=== PATIENT | male | born 1940 | race Caucasian/White ===

== ENCOUNTER 2020-05-26 09:29 | Inpatient (IN) | payer MEDICARE, OTHER, SELFPAY ==
[2020-05-26] VITALS (19 sets, daily range): BP systolic 126–156; BP diastolic 53–90; PULSE 67–87; RESP 15–20; TEMP 36.5–37.1; O2SAT 71–100; BMI 26.6
--- NOTE | ~2020-05-26 | XR_ITS ---
EXAMINATION: XR chest 1V portable INDICATION: Weakness TECHNIQUE: Portable AP chest at 0950 hours COMPARISON: 09/26/2013 FINDINGS: The lungs are free of acute opacities. There is no pleural effusion or pneumothorax. The ca rdiomediastinal silhouette is normal. There is moderate osteoarthritis of the shoulders. IMPRESSION: 1. No acute cardiopulmonary abnormality. Reviewed, dictated and finalized at location A.
--- NOTE | ~2020-05-26 | CT_ITS ---
EXAMINATION: CT knee RT wo con DATE: 05/29/2020 13:34 INDICATION: Right knee pain TECHNIQUE: High resolution computed tomography (CT) of the right knee was performed without intraveno us contrast. Additional sagittal and coronal reconstructions were performed. Automated exposure contr ol and iterative reconstruction technique were employed. The dose-length product was 634.24 mGy-cm. COMPARISON: Radiographs date FINDINGS: Bone alignment is normal. No fracture. Chondrocalcinosis at the bilateral menisci. Tricompartmental o steoarthritis, mild to moderate severity in the medial compartment and mild in the lateral and patell ofemoral compartments. Small knee joint effusion. There is also a moderate-sized Guerrero's cyst. Fatty atrophy of the distal semimembranosus and proximal tibialis anterior muscles. Prominent dystrophic ca lcification along the posterior cruciate ligament. Intraosseous cystic changes along the intercondyla r eminence. Moderate-sized enthesophyte at the anterior tibial tubercle. Scattered atherosclerotic ca lcifications in the distal thigh and proximal calf. IMPRESSION: 1. Chondrocalcinosis and mild to moderate medial compartment predominant tricompartmental osteoarthri tis at the right knee 2. Small right knee joint effusion. 3. Moderate-sized Guerrero's cyst. 4. Fatty atrophy which could be related to prior trauma or denervation change at the distal semimembr anosus and proximal tibialis anterior muscles. Reviewed, dictated and finalized at location A. IMPRESSION: 1. Chondrocalcinosis and mild to moderate medial compartment predominant tricom partmental osteoarthritis at the right knee 2. Small right knee joint effusion. 3. Moderate-sized Guerrero's cyst. 4. Fatty atrophy which could be related to prior trauma or denervation change a t the distal semimembranosus and proximal tibialis anterior muscles.
--- NOTE | ~2020-05-26 | XR_ITS ---
EXAMINATION: XR knee RT 2V DATE: 05/28/2020 13:29 INDICATION: Right knee pain. TECHNIQUE: 2 views of right knee were obtained. COMPARISON: None. FINDINGS: Bone alignment is normal. No fracture. There is mild tricompartmental osteoarthritis of the knee. There is a small knee joint effusion. IMPRESSION: 1. Mild right knee osteoarthritis. 2. Small right knee joint effusion. Reviewed, dictated and finalized at location A.
--- NOTE | ~2020-05-26 | US_ITS ---
EXAMINATION: US knee asp inj w image RT DATE: 05/30/2020 16:03 INDICATION: Right knee pain TECHNIQUE: The procedure and its risks and benefits were discussed with the patient. Potential risks discussed included bleeding and infection. The skin was prepped and draped in sterile fashion. 1% lid ocaine was used for local anesthesia. Under ultrasound guidance, a 22-gauge needle was advanced into the effusion at the lateral side of the suprapatellar pouch of the right knee. 15 mm of fluid was asp irated and sent to the lab for studies as ordered by the referring physician. The needle was removed, and a dressing was applied. There were no immediate complications. FINDINGS: Ultrasound images demonstrate a small right knee joint effusion. IMPRESSION: 1. Successful ultrasound-guided right knee arthrocentesis yielding 15 mL of cloudy yellowish fluid. Reviewed, dictated and finalized at location A. IMPRESSION: 1. Successful ultrasound-guided right knee arthrocentesis yielding 15 mL of cl oudy yellowish fluid.
--- NOTE | ~2020-05-26 | CT_ITS ---
EXAMINATION: CT pelvis wo con DATE: 05/29/2020 13:35 INDICATION: Right hip pain TECHNIQUE: High resolution computed tomography (CT) of the pelvis was performed without intravenous c ontrast. Additional sagittal and coronal reconstructions were performed. Automated exposure control a nd iterative reconstruction technique were employed. The dose-length product was 455.94 mGy-cm. COMPARISON: Right hip radiographs dated 05/28/2020 FINDINGS: Bone alignment is normal. No fracture or suspected avascular necrosis. Moderate osteoarthritis with p osterior predominant joint space narrowing and prominent acetabular marginal osteophytes at both the left and right hips. Moderate right and mild left sacroiliac osteoarthritis with developing ankylosis across the right sacroiliac joint. There are few scattered small bone islands at the bilateral femor al heads. Well-defined 1.5 cm lucent lesion at the intertrochanteric left femur which demonstrates ce ntral macroscopic fat attenuation most likely benign. No hip joint effusions. No asymmetric muscular atrophy at the pelvis or proximal thighs. Mild prostatomegaly. Mild sigmoid diverticulosis without ad jacent inflammatory change to suggest diverticulitis. No pathologically enlarged pelvic or inguinal l ymphadenopathy. IMPRESSION: 1. Moderate bilateral hip osteoarthritis. No acute osseous abnormality. Reviewed, dictated and finalized at location A.
--- NOTE | ~2020-05-26 | CT_ITS ---
EXAMINATION: CT abdomen pelvis w con EXAM DATE: 05/26/2020 10:43 INDICATION: Anemia and diarrhea. TECHNIQUE: Spiral CT of the abdomen and pelvis was performed following intravenous injection of 100 m L Omnipaque 350. Axial, coronal and sagittal images were reviewed. The dose-length product (DLP) fo r this examination was 941.14 mGy-cm. The exposure was tailored according to patient size (auto mA e xposure control), and iterative reconstruction (ASIR) was used as additional dose reduction technique . There is no prior study for comparison. FINDINGS: The liver, spleen, adrenal glands and pancreas are unremarkable. Gallbladder is unremarkab le. No biliary obstruction. Portal and splenic veins are patent. Kidneys enhance symmetrically. T here is no hydronephrosis. The prostate is unremarkable. The bladder is undistended at time of lukasz ging. There is no retroperitoneal or pelvic lymphadenopathy. There is mild to moderate scattered a rteriosclerotic disease. The appendix is normal. The stomach and small bowel are unremarkable. There is mild scattered coloni c diverticulosis. There is no adjacent inflammatory change to suggest diverticulitis. There is expec zane amount of colonic stool. No free intraperitoneal gas. The heart is normal in size. There are no pericardial or pleural effusions. The lung bases are unremarkable. There are no osteoblastic or osteolytic lesions identified. IMPRESSION: 1. No acute intra-abdominal findings. 2. Mild scattered colonic diverticulosis. Reviewed, dictated and finalized at location B.
--- NOTE | ~2020-05-26 | XR_ITS ---
EXAMINATION: XR hip RT min 2V DATE: 05/28/2020 13:29 INDICATION: Right hip pain. TECHNIQUE: 2 views of right hip were obtained. COMPARISON: CT abdomen and pelvis 05/26/2020 FINDINGS: Bone alignment is normal. No fracture. There is moderate right hip osteoarthritis. IMPRESSION: 1. Moderate right hip osteoarthritis. Reviewed, dictated and finalized at location A.
--- NOTE | ~2020-05-26 | CT_ITS ---
EXAMINATION: CT lumbar spine w con DATE: 05/28/2020 20:44 INDICATION: Lumbar back pain TECHNIQUE: Computed tomography (CT) of the lumbar spine was performed without intravenous contrast. A utomated exposure control and iterative reconstruction technique were employed. The dose-length produ ct was 1411.62 mGy-cm. COMPARISON: None FINDINGS: Alignment is normal. Transitional T12 segment with hypoplastic riblet on the right and left-sided tra nsverse process. Vertebral body heights are normal. No fracture. There are bridging osteophytes at mu ltiple levels in the lower thoracic spine which along with enthesophytes along the spinous processes, bilateral posterior iliac spines and bridging osteophytes anterior to the right sacroiliac joint are all consistent with diffuse idiopathic skeletal hyperostosis (DISH). Mild disc height loss with cent ral disc ossification at T8-T9 through T11-T12. Additional mild disc height loss at L2-L3, L4-L5 and L5-S1. Paravertebral soft tissues are unremarkable. Diverticulosis along the visualized sigmoid colon . The following disc levels are specifically discussed: T12-L1: The disc does not extend beyond the endplate margin. There is mild bilateral facet joint oste oarthritis. There is no neural foraminal stenosis. There is no central canal stenosis. L1-L2: Disc is mildly bulging. There is mild bilateral facet joint osteoarthritis. There is minimal b ilateral neural foraminal stenosis. There is mild central canal stenosis. L2-L3: Disc is mildly bulging and there is small amount of ossification along the posterior longitudi nal ligament. There is mild bilateral facet joint osteoarthritis. There is mild bilateral neural for aminal stenosis. There is moderate central canal stenosis. L3-L4: Disc is bulging. There is mild bilateral facet joint osteoarthritis. There is mild bilateral n eural foraminal stenosis. There is mild central canal stenosis. L4-L5: Posterior disc osteophyte complex. There is mild to moderate bilateral facet joint osteoarthri tis. There is moderate bilateral neural foraminal stenosis. There is mild central canal stenosis. L5-S1: Posterior disc osteophyte complex. There is mild bilateral facet joint osteoarthritis. There i s moderate bilateral neural foraminal stenosis. There is minimal central canal stenosis. IMPRESSION: 1. Mild to moderate lumbar spondylosis. Reviewed, dictated and finalized at location A.
--- NOTE | ~2020-05-26 | CT_ITS ---
EXAMINATION: CT brain wo con DATE: 05/26/2020 10:28 INDICATION: Weakness. TECHNIQUE: Computed tomography (CT) of the head was performed without intravenous contrast. The mA wa s adjusted according to patient size. Iterative reconstruction technique was employed. The dose-lengt h product was 681.00 mGy-cm. COMPARISON: Head CT 09/26/2013, brain MRI 09/27/2013 FINDINGS: There is chronic mild atrophy of the cerebellum. There are old lacunar infarcts in the bila teral thalami and left side of the marlena. There are scattered areas of low attenuation in the cerebral white matter. There is no intracranial hemorrhage, acute infarction, or abnormal intracranial mass l esion. There are likely changes of ocular lens replacement surgeries. IMPRESSION: 1. Old lacunar infarcts in the thalami and marlena. 2. Worsened moderate nonspecific cerebral white matter disease, which likely represents chronic small vessel ischemic disease. 3. Mild atrophy of the cerebellum, which may be secondary to chronic Dilantin therapy. Reviewed, dictated and finalized at location A. IMPRESSION: 1. Old lacunar infarcts in the thalami and marlena. 2. Worsened moderate nonspecific cerebral white matter disease, which likely re presents chronic small vessel ischemic disease. 3. Mild atrophy of the cerebellum, which may be secondary to chronic Dilantin t herapy.
--- NOTE | 2020-05-26 09:28 | ECG_ITS ---
Measurements Intervals Chicken Rate: 76 P: 91 CO: 172 QRS: 25 QRSD: 93 T: 30 QT: 389 QTc: 438 Interpretive Statements SINUS RHYTHM BORDERLINE ST ABNORMALITY- ANTEROLATERAL LEADS BASELINE WANDER- I, II, III BORDERLINE ECG Electronically Signed On 05-26-2020 10:00:04 CDT by Nick Maya D.O.
[2020-05-26 09:41] LABS: Basophils Percent Auto 0.2 % (0.2-1.2); Eosinophils Absolute Auto 0.2 K/mm3 (0-0.3); Eosinophils Percent Auto 1.2 % (0-4.4); Immature Granulocyte Absolute 0.04 K/mm3 (0.00-0.031); Immature Granulocyte Percent A 0.3 % (0-0.5); Lymphocytes Absolute Auto 1.37 K/mm3 (0.9-3.2); Lymphocytes Percent Auto 10.6 % (18.3-44.2); Mean Corpuscular HGB Conc 28.3 g/dl (32-36); Mean Corpuscular Hemoglobin 22.7 pg (26-34); Mean Corpuscular Volume 80.3 fl (80-100); Mean Platelet Volume 10.3 fl (7.4-10.4); Monocytes Absolute Auto 1.4 K/mm3 (0.1-0.6); Monocytes Percent Auto 10.9 % (2.6-8.5); Neutrophils Absolute Auto 9.9 K/mm3 (1.3-6.7); Neutrophils Percent Auto 76.8 % (45.5-73.1); Platelet Count Result 342 k/mm3 (150-375); Red Blood Count 2.29 M/mm3 (4.6-6.20); White Blood Count 12.9 K/mm3 (4.5-10.0)
--- NOTE | 2020-05-26 09:43 | ED.WEAKNESS ---
HPI - Weakness General Chief complaint: Weakness Stated complaint: weakness x 1 week Time Seen by Provider: 05/26/20 09:31 Source: patient, family () and EMS Mode of arrival: EMS Limitations: dementia History of Present Illness HPI Narrative: Patient arrives via EMS along with his for increasing weakness. He has baseline dementia and has been needing assistance for years. He has been wearing depends for 3 years. In the last 2 days his has not been able to verbally encourage him to get out of bed. She had to physically assist him to the table to eat, and that was unable to get him to the kitchen and had to just get him to the living room to sit on the couch. He had stools and was unaware of it. She said the stools are diarrhea. He has no fever chills sweats or cough. He complains of right knee pain. She said that is chronic. His appetite has decreased.. He had a stroke 9 years ago, and has had the dementia since. The gives a history. She denies that he has had surgeries. He does not smoke cigarettes, drink alcohol, or do marijuana. MD Complaint: generalized weakness Onset (ago): day(s) Duration: constant Location: generalized Migration: none Severity: severe Relieving factors: none Exacerbating factors: none Associated symptoms: denies other symptoms Related Data Home Medications Medication Instructions Recorded Confirmed atorvastatin 10 mg PO DAILY 05/26/20 citalopram 10 mg PO DAILY 05/26/20 clopidogrel 75 mg PO DAILY 05/26/20 donepezil 5 mg PO HS 05/26/20 glimepiride 1 mg PO QAM 05/26/20 lisinopril 2.5 mg PO DAILY 05/26/20 memantine 5 mg PO QAM 05/26/20 metformin 1,000 mg PO DAILY 05/26/20 tamsulosin 0.4 mg PO DAILY 05/26/20 Allergies Allergy/AdvReac Type Severity Reaction Status Date / Time No Known Allergies Allergy Unverified 05/26/20 09:40 Review of Systems Review of Systems: Narrative: Review of systems as per the . All systems reviewed & are unremarkable except as noted in HPI and below PMFSH Past Medical History Medical History (Updated 05/26/20 @ 14:58 by Ирина Valerio NP) BPH (benign prostatic hyperplasia) Dementia Diarrhea DM2 (diabetes mellitus, type 2) History of CVA (cerebrovascular accident) HTN (hypertension), malignant Hyperlipidemia Weakness Surgical History Surgical History (Updated 05/26/20 @ 09:47 by Theresa Doss MD) No pertinent past surgical history Family History Family History (Updated 05/26/20 @ 14:47 by Ирина Valerio NP) Mother Cerebrovascular accident Father Acute myocardial infarction Social History Social History (Updated 05/26/20 @ 14:51 by Ирина Valerio NP) Social History: the patient lives with his and has 2 children. The states that he is a full code at this time. Patient used to smoke cigars open to the time that he had a stroke but then has not since then. Does not use any marijuana or illicit drugs. 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 Smoking status: Former smoker Alcohol intake: never Substance use: never Gender identity (if verbalized by the patient): Male Exam Narrative: Exam Narrative: GENERAL: Well-appearing, well-nourished, and in no acute distress. HEAD: Normocephalic, atraumatic. EYES: PERRLA and EOMI. ENT: Nares clear, no rhinorrhea or epistaxis. Mucous membranes moist. NECK: Supple. CHEST: Clear to auscultation. No respiratory distress. HEART: Regular rate and rhythm. No murmur heard. Normal peripheral pulses. ABDOMEN: Soft, nontender, nondistended, normal active bowel sounds. EXTREMITIES: Normal range of motion. No edema. SKIN: Warm, dry, no rash. NEURO: No focal deficits. Alert and oriented x1. PSYCH: Normal mood and affect. Course Reevaluation(s) Reevaluation #1: The gives permission for blood transfusion because her has dementia. His stool was dark brown and tested positive on the Hemoccult. Date: 05/26/20 Time: 10:40 Re
[2020-05-26 09:49] LABS: Hematocrit 18.4 % (42.0-52.0); Hemoglobin 5.2 g/dL (14.0-18.0)
[2020-05-26 09:53] LABS: Platelet Estimate Adequate (Adequate)
[2020-05-26 09:54] LABS: Alanine Aminotransferase 24 U/L (4-50); Albumin Level 3.8 g/dL (3.5-5.1); Alkaline Phosphatase 118 U/L (38-126); Anion Gap 8 mmol/L (8-16); Anisocytosis 1+ (NORMAL); Aspartate Amino Transferase 22 U/L (17-59); Bilirubin,Total 0.3 mg/dL (0.2-1.3); Blood Urea Nitrogen 30 mg/dL (9-20); Calcium 8.6 mg/dL (8.4-10.2); Carbon Dioxide 23 mmol/L (22-30); Chloride 110 mmol/L (98-107); Estimated CRCL calculation 55 ml/min; Estimated Glomerular Filt Rate > 60; Glucose 117 mg/dL (75-110); Hypochromasia 1+ (NORMAL); Ovalocytes 1+ (NORMAL); Potassium 4.2 mmol/L (3.4-5.0); Sodium 141 mmol/L (137-145)
[2020-05-26 09:56] LABS: Add Urine Microscopic? YES; Appearance Urine Clear (Clear); Bilirubin Urine Negative (Negative); Blood Urine Negative (Negative); Color Urine Yellow (Yellow); Glucose Urine UA Negative (Negative); Ketones Urine Trace mg/dL (Negative); Leukocyte Esterase Ur Negative LEU/UL (Negative); Mucus Urine Rare /lpf; Nitrate Urine Negative (Negative); Protein Urine Negative (Negative); RBC Urine 0-2 /hpf (0-2); Specific Grav Ur 1.018 (1.001-1.035); Squamous Epithelial Cell Urine Rare /hpf (Few); Urobilinogen Urine Negative mg/dL (<2.0); WBC Urine 0-3 /hpf
[2020-05-26 10:00] LABS: INR 1.2; Prothrombin Time 14.8 Seconds (11.1-14.7)
--- NOTE | 2020-05-26 10:24 | PC.NURSE ---
could not draw blood at this time, pt is in ct and xray.
[2020-05-26 10:29] LABS: NT Pro B Type Natriuretic Pept 446 PG/ML (5-100); Troponin I < 0.012 ng/mL (0.000-0.034)
--- NOTE | 2020-05-26 11:10 | PC.NURSE ---
REPORT GIVEN TO MARIANO WELCH AT THIS TIME, SHE HAS ASSUMED PT CARE.
[2020-05-26] MEDS: SODIUM CHLORIDE 0.9% IV 250 ML 30 ML IV CONT (12:05)
[2020-05-26] MEDS: TUBING, BLOOD SET 1 EACH XX (12:20)
--- NOTE | 2020-05-26 14:34 | PM.IMHP ---
H&P: HPI History of Present Illness Date/Time: 05/26/20 14:34 Chief complaint: weakness/anemia/GI bleed/dementia Narrative: Marek Carrasco is a 80 year old male Who has dementia and history of a CVA. The patient has been having some generalized weakness for at least 1 week. The patient stated that the week this was so bad this morning that she could not get him out of bed. The patient has been taking care of by his . Patient had diarrhea stools. The patient had no fever chills. His not had any recent falls. The patient's stated that he has been having anemia but has not been this severe. His H&H was noted to be 5.2 and 18.4. Patient is very pale but he is alert and conversing. He does have some mild expressive aphasia but some things are understandable. His white counts 12.9. She I has been consulted. Patient's abdominal pelvis CT was read as no acute intra-abdominal findings. Mild scattered colonic diverticulosis. Head CT was noted as old lacunar infarcts in the thalami and marlena. Worsened moderate nonspecific cerebral white matter disease, which likely represents chronic small vessel ischemic disease. Mild atrophy of the cerebellum which may be secondary to chronic Dilantin therapy. I asked the if the patient had a seizure disorder and she stated that he had not had any seizures but at 1 time he was on seizure medicine because they thought he had seizures but when they ran some tests a found that he was not having seizures per se. He had a stroke approximately 9 years ago which left some right-sided residual. And some expressive aphasia. He was hospitalized here about 9 years ago because they thought he had another stroke but he had not. He had been on Plavix. But no aspirin. No other forms of anticoagulation. His blood pressure has been stable. 146/79. the tells me that he is at end-stage dementia and that he has some behavior problems at times. He recently was started on Celexa. I have spent approximately 45 minutes with the patient his . The tells me that the patient is a full code. Date of service 05/26/2020 Review of Systems Review of Systems: All systems reviewed & are unremarkable except as noted in HPI and below Constitutional: Constitutional: Reports as per HPI and Reports no additional constitutional complaints Eyes: Eyes: Reports as per HPI and Reports no additional eye complaints ENT: Reports system reviewed and no additional complaints, except as documented and Reports Normal hearing present Cardiovascular: Cardiovascular: Reports no additional cardiovascular complaints Respiratory: Respiratory: Reports no additional respiratory complaints and Reports no additional respiratory complaints Gastrointestinal: Gastrointestinal: Reports as per HPI and Reports no additional gastrointestinal complaints Musculoskeletal: Musculoskeletal: Reports no additional musculoskeletal complaints Integumentary/Breasts: Skin/Breast: Reports system reviewed and no additional complaints, except as docu and Reports as per HPI Neurologic: Reports system reviewed and no additional complaints, except as documented, Reports as per HPI and Reports Normal hearing present Psychiatric: Psychiatric: Reports no additional psychiatric complaints and Reports as per HPI Endocrine: Endocrine: Reports no additional endocrine complaints Hematologic/Lymphatic: Hematologic/Lymphatic: Reports no additional hematologic/lymphatic complaints Allergic/Immunologic: Allergic/Immunologic: Reports no additional allergic/immunologic complaints [facility] Past Medical History Medical History (Updated 05/26/20 @ 14:58 by Ирина Valerio NP) BPH (benign prostatic hyperplasia) Dementia Diarrhea DM2 (diabetes mellitus, type 2) History of CVA (cerebrovascular accident) HTN (hypertension), malignant Hyperlipidemia Weakness Surgical History Surgical History (Updated 05/26/20 @ 09:47 by Theresa Doss MD) No pertinent past kan
[2020-05-26 15:01] LABS: Troponin I 0.018 ng/mL (0.000-0.034)
--- NOTE | 2020-05-26 16:09 | ADMGEN ---
This patient, Marek Carrasco, was admitted to IMU Room 206-02 1600. Patient/ oriented to hospital policies and general routines including ID bracelet, bed and alarms, visiting hours, pain management, procedures, bathroom and other care routines, personal items, smoking policy, room service/diet, and visiting hours. Valuables list has been completed. Information on how to activate the Rapid Response Team has been discussed. Patient/ are encouraged to report perceived risks to care and to ask questions if they do not understand what they are told or what they should do.
--- NOTE | 2020-05-26 16:48 | WPDGICN ---
Assessment and Plan Assessment and plan (1) GI bleed: Qualifiers: GI bleed type/associated pathology: unspecified gastrointestinal hemorrhage type Qualified Code(s): K92.2 - Gastrointestinal hemorrhage, unspecified Code(s): K92.2 - Gastrointestinal hemorrhage, unspecified Status: Acute Assessment and Plan: dark stools, I wonder if could have upper gib but also need to have a colonoscopy to assess if diverticular bleed, malignancy, avm, etc will proceed with both scopes tomorrow hold plavix he will get his second unit prbc (2) Symptomatic anemia: Code(s): D64.9 - Anemia, unspecified Status: Acute Assessment and Plan: transfuse to keep hb above 7 ppi (3) Weakness: Code(s): R53.1 - Weakness Status: Acute (4) Diarrhea: Qualifiers: Diarrhea type: unspecified type Qualified Code(s): R19.7 - Diarrhea, unspecified Code(s): R19.7 - Diarrhea, unspecified Status: Acute Assessment and Plan: probably gib, supportive care GI Consult Note Consult date/time: 05/26/20 16:48 Reason for consult: symptomatic anemia HPI: Marek Carrasco is a 80 year old male with history dementia and history of a CVA about 9 years ago, now using plavix. History is obtained from who is at bedside. She noted that last week patient has progressively getting weaker and today she could not get him out of bed. She is his main caregiver. Also she noted dark loose stools for almost a week. On arrival hiis H&H was 5.2 and 18.4. 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 CT scan no acute intra-abdominal findings. Mild scattered colonic diverticulosis. Head CT was noted as old lacunar infarcts in the thalami and marlena. She says that his last colonoscopy was about 7 years ago. Review of Systems Constitutional: Constitutional: Denies chills, Reports fatigue, Denies headache(s), Reports lethargy and Reports weakness ENT: Reports Normal hearing present, Denies headache(s) and Denies neck pain Cardiovascular: Cardiovascular: Denies chest pain and Denies dyspnea Respiratory: Respiratory: Reports dyspnea on exertion Gastrointestinal: Gastrointestinal: Reports diarrhea Genitourinary: Genitourinary: Denies dysuria Musculoskeletal: Musculoskeletal: Denies neck pain Integumentary/Breasts: Skin/Breast: Denies dry skin Neurologic: Reports Normal hearing present, Denies headache(s) and Denies weakness Psychiatric: Psychiatric: Reports confusion Endocrine: Endocrine: Denies change in body appearance Hematologic/Lymphatic: Hematologic/Lymphatic: Denies easy bleeding Allergic/Immunologic: Allergic/Immunologic: Denies urticaria PMFSH Past Medical History Medical History (Updated 05/26/20 @ 16:53 by Bahman Tolentino MD) BPH (benign prostatic hyperplasia) Dementia Diarrhea DM2 (diabetes mellitus, type 2) History of CVA (cerebrovascular accident) HTN (hypertension), malignant Hyperlipidemia Symptomatic anemia Weakness Surgical History Surgical History (Updated 05/26/20 @ 09:47 by Theresa Doss MD) No pertinent past surgical history Social History Social History (Updated 05/26/20 @ 14:51 by Ирина Valerio NP) Social History: the patient lives with his and has 2 children. The states that he is a full code at this time. Patient used to smoke cigars open to the time that he had a stroke but then has not since then. Does not use any marijuana or illicit drugs. 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 Smoking status: Former smoker Tobacco type: cigars Alcohol intake: never Substance use: never Gender identity (if verbalized by the patient): Male Spiritual care concerns: No Meds Home Medications and Allergies Home Medications Medication Instructions Recorded Confirmed Type atorvastatin 10 mg PO DAILY 05/26/20 History citalopram 10 mg PO DAILY 05/26/20 History clopidogrel 75 mg P
[2020-05-26 17:05] LABS: Glucose Point of Care 175 (65-105)
[2020-05-26 20:13] LABS: Glucose Point of Care 138 (65-105)
[2020-05-26] MEDS: SODIUM CHLORIDE 0.9% IV 1,000 ML 125 ML IV CONT (21:32)
[2020-05-26] MEDS: PANTOPRAZOLE SODIUM IV 40 MG VIAL IV PUSH (21:33)
[2020-05-26 23:59] LABS: Hemoglobin 7.2 g/dL (14.0-18.0)
[2020-05-27] VITALS (16 sets, daily range): BP systolic 124–158; BP diastolic 53–88; PULSE 59–77; RESP 16–21; TEMP 35.8–37.1; O2SAT 99–100
[2020-05-27] MEDS: SODIUM CHLORIDE 0.9% IV 1,000 ML 125 ML IV CONT ×2 (05:32→14:32)
[2020-05-27 08:55] LABS: Glucose Point of Care 118 (65-105)
[2020-05-27 09:10] LABS: Hematocrit 22.8 % (42.0-52.0); Hemoglobin 7.2 g/dL (14.0-18.0)
[2020-05-27 09:32] LABS: Hemoglobin A1C 6.1 % (<5.7)
[2020-05-27 09:49] LABS: Alanine Aminotransferase 22 U/L (4-50); Albumin Level 3.5 g/dL (3.5-5.1); Alkaline Phosphatase 100 U/L (38-126); Anion Gap 7 mmol/L (8-16); Aspartate Amino Transferase 24 U/L (17-59); Bilirubin,Total 0.7 mg/dL (0.2-1.3); Blood Urea Nitrogen 19 mg/dL (9-20); Calcium 7.9 mg/dL (8.4-10.2); Carbon Dioxide 23 mmol/L (22-30); Chloride 110 mmol/L (98-107); Estimated CRCL calculation 58 ml/min; Estimated Glomerular Filt Rate > 60; Glucose 119 mg/dL (75-110); Phosphorus 2.8 mg/dL (2.5-4.5); Potassium 4.1 mmol/L (3.4-5.0); Sodium 140 mmol/L (137-145)
--- NOTE | 2020-05-27 10:56 | WPDANESEPPF ---
Anes - Initial Pre Proc Eval Procedure: Operation Date: 05/27/20 12:00 Proposed Procedures p Flexible Sigmoidoscopy - Bahman Tolentino MD s Esophagogastroduodenoscopy - Bahman Tolentino MD Date/Time: 05/27/20 10:56 Surgeon: Judy Becker MD Pre Op Diagnosis: weakness/anemia/GI bleed/dementia Patient Data Age: 80 Gender: M Height: 5 ft 9 in Weight: 83.2 kg Last Vital Signs Temp 98 F 05/27/20 08:00 Pulse 65 05/27/20 08:00 Resp 18 05/27/20 08:00 BP 158/86 H 05/27/20 08:00 Pulse Ox 100 05/27/20 08:00 Allergies Allergy/AdvReac Type Severity Reaction Status Date / Time No Known Allergies Allergy Unverified 05/26/20 09:40 Home Medications Medication Instructions Recorded Confirmed Type atorvastatin 20 mg PO DAILY 05/26/20 05/26/20 History citalopram 10 mg PO DAILY 05/26/20 05/26/20 History clopidogrel 75 mg PO DAILY 05/26/20 05/26/20 History donepezil 10 mg PO HS 05/26/20 05/26/20 History glimepiride 4 mg PO QAM 05/26/20 05/26/20 History lisinopril 10 mg PO DAILY 05/26/20 05/26/20 History memantine 10 mg PO QAM 05/26/20 05/26/20 History metformin 500 mg PO BID 05/26/20 05/26/20 History tamsulosin 0.4 mg PO DAILY 05/26/20 05/26/20 History Laboratory Tests 05/26/20 05/26/20 05/26/20 09:36 10:29 14:31 Hgb Hct Sodium Potassium Chloride Carbon Dioxide Anion Gap BUN Creatinine Estim Creat Clear Calc Estimated GFR Glucose POC Capillary Glucose Hemoglobin A1c Calcium Phosphorus Magnesium Total Bilirubin AST ALT Alkaline Phosphatase Troponin I 0.018 ng/mL D ng/mL (0.000-0.034) Total Protein Albumin TSH (Reflex) 1.610 uIU/mL uIU/mL (0.465-4.68) Blood Type A Positive Antibody Screen Negative Crossmatch See Detail 05/26/20 05/26/20 05/26/20 17:02 19:55 23:53 Hgb 7.2 g/dL L g/dL (14.0-18.0) Hct 23.0 % L % (42.0-52.0) Sodium Potassium Chloride Carbon Dioxide Anion Gap BUN Creatinine Estim Creat Clear Calc Estimated GFR Glucose POC Capillary Glucose 175 mg/dl H mg/dl 138 mg/dl H mg/dl (65-105) (65-105) Hemoglobin A1c Calcium Phosphorus Magnesium Total Bilirubin AST ALT Alkaline Phosphatase Troponin I Total Protein Albumin TSH (Reflex) Blood Type Antibody Screen Crossmatch 05/27/20 05/27/20 05/27/20 08:51 08:56 08:56 Hgb 7.2 g/dL L g/dL (14.0-18.0) Hct 22.8 % L % (42.0-52.0) Sodium Potassium Chloride Carbon Dioxide Anion Gap BUN Creatinine Estim Creat Clear Calc Estimated GFR Glucose POC Capillary Glucose 118 mg/dl H mg/dl (65-105) Hemoglobin A1c 6.1 % H % (<5.7) Calcium Phosphorus Magnesium Total Bilirubin AST ALT Alkaline Phosphatase Troponin I Total Protein Albumin TSH (Reflex) Blood Type Antibody Screen Crossmatch 05/27/20 05/27/20 08:56 08:56 Hgb Hct Sodium 140 mmol/L mmol/L (137-145) Potassium 4.1 mmol/L mmol/L (3.4-5.0) Chloride 110 mmol/L H mmol/L (98-107) Carbon Dioxide 23 mm
[2020-05-27] MEDS: LACTATED RINGERS 1,000 ML 150 ML IV CONT (11:55)
[2020-05-27 13:55] LABS: Glucose Point of Care 121 (65-105)
[2020-05-27] MEDS: MEMANTINE 5 MG TABLET PO (14:28)
[2020-05-27] MEDS: TAMSULOSIN HCL 0.4 MG CAPSULE PO (14:28)
[2020-05-27] MEDS: ATORVASTATIN 10 MG TABLET PO (14:28)
[2020-05-27] MEDS: GLIMEPIRIDE 1 MG TABLET PO (14:29)
[2020-05-27] MEDS: PANTOPRAZOLE SODIUM IV 40 MG VIAL IV PUSH ×2 (14:29→20:24)
[2020-05-27] MEDS: CITALOPRAM HYDROBROMIDE 10 MG TABLET PO (14:29)
[2020-05-27 16:22] LABS: Hematocrit 22.7 % (42.0-52.0); Hemoglobin 7.1 g/dL (14.0-18.0)
[2020-05-27 17:49] LABS: Glucose Point of Care 115 (65-105)
--- NOTE | 2020-05-27 18:03 | PM.IMPN ---
Progress Note: A&P Assessment and Plan (1) GI bleed: Qualifiers: GI bleed type/associated pathology: unspecified gastrointestinal hemorrhage type Qualified Code(s): K92.2 - Gastrointestinal hemorrhage, unspecified Code(s): K92.2 - Gastrointestinal hemorrhage, unspecified Status: Acute Assessment and Plan: Hgb 5.2 on admission. [place] related to GI bleed and EGD showing a gastric mass. Appreciate GI input. Patient recieved 2 units of packed red blood cells. Protonix started and Plavix held. His blood pressure is within normal limits. The stated that he was having dark stools. Monitor HH. No plans for colonoscopy at this time. (2) Acute blood loss anemia: Code(s): D62 - Acute posthemorrhagic anemia Status: Acute Assessment and Plan: Hemoglobin 5.2 on admission. Most likely related to a GI bleed from the gastric mass. Patient has been transfused 2 units of packed red blood cells. Hemoglobin has climbed 7 range stable. Will continue to monitor and transfuse as needed. Patient will need iron at time of discharge. 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 Patient's was informed of this. Oncology has been consulted. (4) Right leg pain: Code(s): M79.604 - Pain in right leg Status: Acute Assessment and Plan: Exam is difficult but concern for possibly right hip etiology for his pain. cannot exclude right knee or lumbar pathology. Will check right knee and right hip x-ray. Therapy has been ordered. Some of weakness is related to the anemia (5) Dementia: Qualifiers: Dementia behavioral disturbance: with behavioral disturbance Dementia type: unspecified type Qualified Code(s): F03.91 - Unspecified dementia with behavioral disturbance Code(s): F03.90 - Unspecified dementia without behavioral disturbance Status: Acute Assessment and Plan: Dementia with behavioral disorder. Appears to get agitated mostly night. Continue Namenda and Aricept. He was recently started on Celexa due to some behavioral problems. (6) BPH (benign prostatic hyperplasia): Code(s): N40.0 - Benign prostatic hyperplasia without lower urinary tract symptoms Status: Acute Assessment and Plan: Stable. Continue with tamsulosin. (7) HTN (hypertension), malignant: Code(s): I10 - Essential (primary) hypertension Status: Chronic Assessment and Plan: Patient's blood pressure was reviewed on 05/27 Blood pressure remains well controlled. lisinopril on hold (8) History of CVA (cerebrovascular accident): Code(s): Z86.73 - Personal history of transient ischemic attack (TIA), and cerebral infarction without residual deficits Status: Acute Assessment and Plan: Plavix on hold. Continue atorvastatin. (9) DM2 (diabetes mellitus, type 2): Code(s): E11.9 - Type 2 diabetes mellitus without complications Status: Chronic Assessment and Plan: The patient's blood glucose was reviewed on 05/27 Glucose remains well controlled. Continue AccuCheks covering with sliding scale. Hypoglycemia protocol available as needed. Diet started. Change to diabetic diet if glucose because poorly controlled. Metformin remains on hold (10) Hyperlipidemia: Code(s): E78.5 - Hyperlipidemia, unspecified Status: Chronic Assessment and Plan: LFTs within normal limits. Continue atorvastatin. Subjective Date/time seen: 05/27/20 18:03 Interval history: 80yo male with advanced dementia and hx of CVA here for GI bleed.Patient is awake and alert but unable to provide history because of his dementia. is at bedside. She states the patient has been more weak recently. He also ap
--- NOTE | 2020-05-27 19:55 | PC.NURSE ---
This patient, Marek Carrasco, was transferred to [[facility] ] on 05/27/20 at 1955. Personal belongings sent with patient. Belongings list checked and signed with receiving [ RN]. Report given to [ Josselyn Flores ]. Appropriate documentation sent with patient.
[2020-05-27] MEDS: DONEPEZIL HCL 5 MG TABLET PO (20:24)
[2020-05-27 20:33] LABS: Glucose Point of Care 139 (65-105)
--- NOTE | 2020-05-27 20:38 | PC.NURSE ---
2000 RECEIVED PT PER BED FROM IMU
[2020-05-28] VITALS (8 sets, daily range): BP systolic 128–151; BP diastolic 58–69; PULSE 53–78; RESP 16–20; TEMP 36.8–37.1; O2SAT 93–100
[2020-05-28] MEDS: SODIUM CHLORIDE 0.9% IV 1,000 ML 125 ML IV CONT (02:15)
[2020-05-28 05:10] LABS: Hematocrit 22.3 % (42.0-52.0); Mean Corpuscular HGB Conc 30.9 g/dl (32-36); Mean Corpuscular Hemoglobin 25.2 pg (26-34); Mean Corpuscular Volume 81.4 fl (80-100); Mean Platelet Volume 10.8 fl (7.4-10.4); Platelet Count Result 310 k/mm3 (150-375); Red Blood Count 2.74 M/mm3 (4.6-6.20); Red Cell Distribution Width 16.9 % (11.5-14.5); White Blood Count 12.6 K/mm3 (4.5-10.0)
[2020-05-28 05:20] LABS: Hemoglobin 6.9 g/dL (14.0-18.0)
[2020-05-28] MEDS: TUBING, BLOOD PLUM PUMP TUBING 1 EACH XX (05:20)
[2020-05-28 05:29] LABS: Anion Gap 7 mmol/L (8-16); Blood Urea Nitrogen 15 mg/dL (9-20); Calcium 7.8 mg/dL (8.4-10.2); Carbon Dioxide 23 mmol/L (22-30); Chloride 108 mmol/L (98-107); Estimated CRCL calculation 65 ml/min; Estimated Glomerular Filt Rate > 60; Glucose 108 mg/dL (75-110); Potassium 3.7 mmol/L (3.4-5.0); Sodium 138 mmol/L (137-145)
[2020-05-28] MEDS: SODIUM CHLORIDE 0.9% IV 250 ML 30 ML IV CONT (06:00)
--- NOTE | 2020-05-28 07:39 | WPDANESPN ---
Anes - Prog Note Post-Op Date/Time: 05/28/20 07:39 Cardiovascular status: other (recieving PRBC) Respiratory status: normal Airway patency: baseline Mental status: baseline Post-Op hydration status: normal Vital Signs: Last Vital Signs Temp 37.1 C 05/28/20 07:05 Pulse 70 05/28/20 07:05 Resp 16 05/28/20 07:05 BP 130/58 L 05/28/20 07:05 Pulse Ox 93 05/28/20 07:05 I/O: Intake & Output 05/27/20 05/27/20 05/28/20 15:59 23:59 07:59 Intake Total 1300 1240 0 Balance 1300 1240 0 Laboratory Tests 05/28/20 04:50 05/28/20 04:50 05/26/20 05/27/20 05/27/20 10:29 08:51 08:56 WBC RBC Hgb Hct MCV MCH MCHC RDW Plt Count MPV Sodium Potassium Chloride Carbon Dioxide Anion Gap BUN Creatinine Estim Creat Clear Calc Estimated GFR Glucose POC Capillary Glucose 118 H Hemoglobin A1c 6.1 H Calcium Phosphorus Magnesium Total Bilirubin AST ALT Alkaline Phosphatase Total Protein Albumin TSH (Reflex) Blood Type A Positive Antibody Screen Negative Crossmatch See Detail 05/27/20 05/27/20 05/27/20 08:56 08:56 08:56 WBC RBC Hgb 7.2 L Hct 22.8 L MCV MCH MCHC RDW Plt Count MPV Sodium 140 Potassium 4.1 Chloride 110 H Carbon Dioxide 23 Anion Gap 7 L BUN 19 D Creatinine 0.90 Estim Creat Clear Calc 58 Estimated GFR > 60 Glucose 119 H POC Capillary Glucose Hemoglobin A1c Calcium 7.9 L Phosphorus 2.8 Magnesium 2.0 Total Bilirubin 0.7 AST 24 ALT 22 Alkaline Phosphatase 100 Total Protein 6.0 L Albumin 3.5 TSH (Reflex) 1.710 Blood Type Antibody Screen Crossmatch 05/27/20 05/27/20 05/27/20 13:53 16:06 17:30 WBC RBC Hgb 7.1 L Hct 22.7 L MCV MCH MCHC RDW Plt Count MPV Sodium Potassium Chloride Carbon Dioxide Anion Gap BUN Creatinine Estim Creat Clear Calc Estimated GFR Glucose POC Capillary Glucose 121 H 115 H Hemoglobin A1c Calcium Phosphorus Magnesium Total Bilirubin AST ALT Alkaline Phosphatase Total Protein Albumin TSH (Reflex) Blood Type Antibody Screen Crossmatch 05/27/20 05/28/20 05/28/20 20:23 04:50 04:50 WBC 12.6 H RBC 2.74 L Hgb 6.9 L* Hct 22.3 L MCV 81.4 MCH 25.2 L D MCHC 30.9 L RDW 16.9 H Plt Count 310 MPV 10.8 H Sodium 138 Potassium 3.7 Chloride 108 H Carbon Dioxide 23 Anion Gap 7 L BUN 15 Creatinine 0.80 Estim Creat Clear Calc 65 Estimated GFR > 60 Glucose 108 POC Capillary Glucose 139 H Hemoglobin A1c Calcium 7.8 L Phosphorus Magnesium Total Bilirubin AST ALT Alkaline Phosphatase Total Protein Albumin TSH (Reflex) Blood Type Antibody Screen Crossmatch Post-procedural complaints: none Patient Feedback: Patient satisfied with anesthetic care.
[2020-05-28 08:39] LABS: Glucose Point of Care 115 (65-105)
[2020-05-28] MEDS: CITALOPRAM HYDROBROMIDE 10 MG TABLET PO (09:30)
[2020-05-28] MEDS: ATORVASTATIN 10 MG TABLET PO (09:30)
[2020-05-28] MEDS: GLIMEPIRIDE 1 MG TABLET PO (09:30)
[2020-05-28] MEDS: TAMSULOSIN HCL 0.4 MG CAPSULE PO (09:30)
[2020-05-28] MEDS: MEMANTINE 5 MG TABLET PO (09:30)
--- NOTE | 2020-05-28 10:05 | PM.IMPN ---
Progress Note: A&P Assessment and Plan (1) GI bleed: Qualifiers: GI bleed type/associated pathology: unspecified gastrointestinal hemorrhage type Qualified Code(s): K92.2 - Gastrointestinal hemorrhage, unspecified Code(s): K92.2 - Gastrointestinal hemorrhage, unspecified Status: Acute Assessment and Plan: Hgb 5.2 on admission. [place] related to GI bleed and EGD showing a gastric mass. Appreciate GI input. Patient recieved 2 units of packed red blood cells. Protonix started and Plavix held. His blood pressure is within normal limits. The stated that he was having dark stools. No plans for colonoscopy at this time. Hgb dropped slightly to 6.9 so another unit ordered. Continue to monitor. (2) Acute blood loss anemia: Code(s): D62 - Acute posthemorrhagic anemia Status: Acute Assessment and Plan: Hemoglobin 5.2 on admission. Most likely related to a GI bleed from the gastric mass. Patient was transfused 2 units of packed red blood cells. Hemoglobin climbed to the 7 range but back down this morning to 6.9 so repeat transfusion ordered. Hgb now at 8.2. Will continue to monitor for stability and transfuse as needed. Patient will need iron at time of discharge. 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 Patient's has been informed of this. Oncology has been consulted. (4) Right leg pain: Code(s): M79.604 - Pain in right leg Status: Acute Assessment and Plan: Exam is difficult but concern for possibly right hip etiology for his pain. Cannot exclude right knee or lumbar pathology. Right knee and right hip x-ray pending. Consider metastatic disease. Therapy is working with the patient and he does seem to favor the right leg. Some of weakness is related to the anemia. Right knee and hip showing osteoarthritis. No obvious bony abnormalities to suggest mets. Check CT of the lumbar spine. (5) Dementia: Qualifiers: Dementia behavioral disturbance: with behavioral disturbance Dementia type: unspecified type Qualified Code(s): F03.91 - Unspecified dementia with behavioral disturbance Code(s): F03.90 - Unspecified dementia without behavioral disturbance Status: Acute Assessment and Plan: Dementia with behavioral disorder. Appears to get agitated mostly night but calm now. Continue Namenda and Aricept. He was recently started on Celexa due to behavioral problems. (6) BPH (benign prostatic hyperplasia): Code(s): N40.0 - Benign prostatic hyperplasia without lower urinary tract symptoms Status: Acute Assessment and Plan: Stable. Continue with tamsulosin. (7) HTN (hypertension), malignant: Code(s): I10 - Essential (primary) hypertension Status: Chronic Assessment and Plan: Patient's blood pressure was reviewed on 05/28 Blood pressure remains well controlled. Lisinopril remains on hold (8) History of CVA (cerebrovascular accident): Code(s): Z86.73 - Personal history of transient ischemic attack (TIA), and cerebral infarction without residual deficits Status: Acute Assessment and Plan: Plavix on hold due to blood loss anemia. Continue atorvastatin. (9) DM2 (diabetes mellitus, type 2): Code(s): E11.9 - Type 2 diabetes mellitus without complications Status: Chronic Assessment and Plan: The patient's blood glucose was reviewed on 05/28 Glucose remains well controlled. Continue AccuCheks covering with sliding scale. Hypoglycemia protocol available as needed. Metformin remains on hold (10) Hyperlipidemia: Code(s): E78.5 - Hyperlipidemia, unspecified Status: Chronic Assessment and Plan: LFTs within normal limits. Continue
--- NOTE | 2020-05-28 10:40 | WPDGIPROGNO ---
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 (2) Melena: Code(s): K92.1 - Melena Status: Acute Assessment and Plan: plavix discontinued on ppi bid (3) Acute blood loss anemia: Code(s): D62 - Acute posthemorrhagic anemia Status: Acute Assessment and Plan: monitor h/h (4) Dementia: Qualifiers: Dementia behavioral disturbance: with behavioral disturbance Dementia type: unspecified type Qualified Code(s): F03.91 - Unspecified dementia with behavioral disturbance Code(s): F03.90 - Unspecified dementia without behavioral disturbance Status: Acute Assessment and Plan: pleasantly confused today Subjective Date/time seen: 05/28/20 10:40 Interval history: he tolerated breakfast and quite comfortable, is at bedside. Only complain is knee pain. Review of Systems Review of Systems: All systems reviewed & are unremarkable except as noted in HPI and below Exam Const: General: comfortable Other: lying in bed, alert and awake but pleasantly confused (baseline) HENMT: General nose exam: Normal nares present Eyes: General: appearance normal, both eyes and all related structures Neck: Neck: no JVD Resp: Auscultation: clear to auscultation bilaterally Cardio: Rate: regular rate Rhythm: regular rhythm Heart sounds: Murmur heart sound present GI: Inspection: non-distended GI Palp: Yes Soft to palpation, No Tenderness to palpation present (GI) and No Guarding due to palpation present (GI) Auscultation: normal bowel sounds Skin: General skin exam: normal color Neuro: Other: he is talking but some aphasia noted (baseline) Extrem: General: normal to inspection Objective Data Vital Signs Vital Signs: Vital Signs - 24 hr 05/27/20 11:56 05/27/20 11:59 05/27/20 12:00 Temperature 98.8 F 98.6 F Pulse Rate 59 L 65 Respiratory Rate 20 18 Blood Pressure 155/80 H 131/67 Pulse Oximetry 99 99 99 05/27/20 12:24 05/27/20 12:34 05/27/20 12:44 Temperature Pulse Rate 69 69 76 Respiratory Rate 21 H 19 21 H Blood Pressure 124/55 L 142/65 H 153/88 H Pulse Oximetry 99 99 100 05/27/20 14:00 05/27/20 16:00 05/27/20 18:00 Temperature 97.5 F L Pulse Rate 60 72 77 Respiratory Rate 16 Blood Pressure 146/64 H Pulse Oximetry 100 05/27/20 21:41 05/28/20 05:13 05/28/20 06:50 Temperature 98.7 F 98.5 F 98.6 F Pulse Rate 74 66 78 Respiratory Rate 20 16 20 Blood Pressure 134/53 L 141/69 H 142/66 H Pulse Oximetry 99 100 96 05/28/20 07:05 05/28/20 08:05 05/28/20 09:05 Temperature 98.7 F 98.2 F 98.4 F Pulse Rate 70 53 L 75 Respiratory Rate 16 18 16 Blood Pressure 130/58 L 140/69 128/60 Pulse Oximetry 93 98 95 05/28/20 09:30 Temperature 98.6 F Pulse Rate 69 Respiratory Rate 16 Blood Pressure 139/64 Pulse Oximetry 96 Intake/Output Intake/Output: Intake & Output 05/25/20 05/26/20 05/27/20 05/28/20 23:59 23:59 23:59 23:59 Intake Total 600 3890 850 Balance 600 3890 850 Meds/Results Medications: Active Medications Generic Name Dose Route Start Last Admin Trade Name Freq PRN Reason Stop Dose Admin Atorvastatin Calcium 10 mg 05/27/20 09:00 05/27/20 14:28 Lipitor PO 10 mg DAILY CHICHI Administration Citalopram Hydrobromide 10 mg 05/27/20 09:00 05/27/20 14:29 Celexa PO 10 mg DAILY CHICHI Administration Dextrose 12.5 gm 05/26/20 14:29 Dextrose 50% Syringe IV PUSH PRN PRN Hypoglycemia Protocol Donepezil HCl 5 mg 05/26/20 21:00 05/27/20 20:24 Aricept PO 5 mg HS CHICHI Administration Glimepiri
[2020-05-28 12:02] LABS: Glucose Point of Care 239 (65-105)
[2020-05-28] MEDS: INSULIN ASPART (*BKC) 100 UNITS/ML SUB-Q (12:03)
[2020-05-28] MEDS: PANTOPRAZOLE SODIUM IV 40 MG VIAL IV PUSH ×2 (12:04→21:23)
--- NOTE | 2020-05-28 12:15 | PC.NURSE ---
Patient c/o severe knee and hip pain when getting up to chair. Called Dr. La and notified him of same. Orders received.
[2020-05-28] MEDS: ACETAMINOPHEN 325 MG TABLET 650 MG PO (12:44)
[2020-05-28 13:09] LABS: Hematocrit 26.5 % (42.0-52.0); Hemoglobin 8.2 g/dL (14.0-18.0)
--- NOTE | 2020-05-28 15:25 | PDONCCN ---
HPI - Date of Consult Date/Time: 05/28/20 15:25 Requesting Physician: Judy Becker MD Primary Care Provider: [employer] REP PHYSICIAN - Consult Narrative Reason for consult: Esophageal mass and anemia Narrative: Marek Carrasco is a 80 year old male This is a 80-year-old male with history of dementia and history of CVA. Patient was also on Plavix. Patient is a poor historian. This case was discussed with as well. Patient came into the hospital with generalized weakness for at least 1 week duration. He denies any fevers and chills. Patient also complain of diarrhea stool. He also had intermittent dark-colored stool for at least 1 week duration. Labs showed hemoglobin of 5.2. CT scan showed no intra-abdominal pathology. EGD was performed on June 04 that showed malignant appearing mass at the gastric fundus. Biopsies were taken. Patient also received 3 units of packed red blood cell with improvement in hemoglobin. Review of Systems - Review of Systems All systems reviewed & are unremarkable except as noted in HPI and bel - Neurologic Reports system reviewed and no additional complaints, except as documented, Reports hearing normal, Reports abnormal speech, Reports confusion, Denies headache(s), Denies weakness PMFSH Medical History: Medical History (Last Updated 05/28/20 @ 10:42 by Bahman Tolentino MD) BPH (benign prostatic hyperplasia) Dementia Diarrhea DM2 (diabetes mellitus, type 2) History of CVA (cerebrovascular accident) HTN (hypertension), malignant Hyperlipidemia Melena Symptomatic anemia Weakness Surgical History: Surgical History (Last Updated 05/26/20 @ 09:47 by Theresa Doss MD) No pertinent past surgical history Family History: Family History (Last Reviewed 05/26/20 @ 16:44 by Lin Saunders RN) Mother Cerebrovascular accident Father Acute myocardial infarction - Social History Social History: Social History (Last Updated 05/26/20 @ 14:51 by Ирина Valerio NP) Gender Identity: Gender identity (if verbalized by the patient): Male Alcohol Use: Alcohol intake: never Substance Use: Substance use: never Others: Spiritual care concerns: No Smoking Status: Smoking status: Former smoker Tobacco type: cigars Approximate Smoking End Date: 2012 Meds Home Medications Medication Instructions Recorded Confirmed Type atorvastatin 20 mg PO DAILY 05/26/20 05/26/20 History citalopram 10 mg PO DAILY 05/26/20 05/26/20 History clopidogrel 75 mg PO DAILY 05/26/20 05/26/20 History donepezil 10 mg PO HS 05/26/20 05/26/20 History glimepiride 4 mg PO QAM 05/26/20 05/26/20 History lisinopril 10 mg PO DAILY 05/26/20 05/26/20 History memantine 10 mg PO QAM 05/26/20 05/26/20 History metformin 500 mg PO BID 05/26/20 05/26/20 History tamsulosin 0.4 mg PO DAILY 05/26/20 05/26/20 History Allergies Allergy/AdvReac Type Severity Reaction Status Date / Time No Known Allergies Allergy Unverified 05/26/20 09:40 Results - Labs CBC & Chem 7: 05/28/20 13:00 05/28/20 04:50 Labs: Short CBC 05/27/20 05/28/20 05/28/20 Range/Units 16:06 04:50 13:00 WBC 12.6 H (4.5-10.0) K/mm3 Hgb 7.1 L 6.9 L* 8.2 L (14.0-18.0) g/dL Hct 22.7 L 22.3 L 26.5 L (42.0-52.0) % Plt Count 310 (150-375) k/mm3 [facility] 05/28/20 04:50 Sodium 138 Potassium 3.7 Chloride 108 H Carbon Dioxide 23 BUN 15 Creatinine 0.80 Glucose 108 Calcium 7.8 L Assessment and Plan - Additional Plan Malignant appearing mass of gastric fundus. Patient had EGD done on June 04. Pathology report showed no evidence of malignancy. CT scan of abdomen and pelvis showed diverticulosis. This could be due to necrotic tissue. Have discussed this report with patient in detail. Patient has been provided with my office information. They will follow-up with me in the office for any recommendations for furritika
[2020-05-28 17:25] LABS: Glucose Point of Care 148 (65-105)
[2020-05-28 17:54] LABS: Hematocrit 24.4 % (42.0-52.0); Hemoglobin 7.6 g/dL (14.0-18.0)
[2020-05-28 18:26] LABS: Iron 11 ug/dL (49-181)
[2020-05-28 18:35] LABS: Percent Iron Saturation 3 % (20-50)
[2020-05-28 21:30] LABS: Glucose Point of Care 157 (65-105)
[2020-05-29 00:26] LABS: Hematocrit 23.7 % (42.0-52.0); Hemoglobin 7.5 g/dL (14.0-18.0)
[2020-05-29 04:00] VITALS: BP 164/66; PULSE 74; RESP 20; TEMP 36.8; O2SAT 98
[2020-05-29 05:27] LABS: Hematocrit 24.7 % (42.0-52.0); Hemoglobin 7.7 g/dL (14.0-18.0); Mean Corpuscular HGB Conc 31.2 g/dl (32-36); Mean Corpuscular Hemoglobin 25.6 pg (26-34); Mean Corpuscular Volume 82.1 fl (80-100); Platelet Count Result 312 k/mm3 (150-375); Red Blood Count 3.01 M/mm3 (4.6-6.20); Red Cell Distribution Width 17.2 % (11.5-14.5); White Blood Count 12.5 K/mm3 (4.5-10.0)
[2020-05-29 05:43] LABS: Anion Gap 6 mmol/L (8-16); Blood Urea Nitrogen 13 mg/dL (9-20); Calcium 7.9 mg/dL (8.4-10.2); Carbon Dioxide 25 mmol/L (22-30); Chloride 107 mmol/L (98-107); Estimated CRCL calculation 58 ml/min; Estimated Glomerular Filt Rate > 60; Glucose 121 mg/dL (75-110); Potassium 3.6 mmol/L (3.4-5.0); Sodium 138 mmol/L (137-145)
[2020-05-29 07:45] LABS: Glucose Point of Care 117 (65-105)
--- NOTE | 2020-05-29 09:26 | WPDGIPROGNO ---
Progress Note: A&P Assessment and Plan (1) Gastric mass: Code(s): K31.89 - Other diseases of stomach and duodenum Status: Acute Assessment and Plan: egd found large ulcerated area in fundus of stomach which was concerning for malignancy however biopsies c/w debris/ulcers but did not see neoplastic tissue (pathologist awaiting for further workup to include deeper levels of tissue sample). If final path report did not reveal cancer then I can do another EGD in 3-4 weeks to take more samples and also reassess area once again. In the meantime he is tolerating diet, will need residential PPI twice daily and avoid any blood thinners or nsaid's (2) Melena: Code(s): K92.1 - Melena Status: Acute Assessment and Plan: resolved (3) Acute blood loss anemia: Code(s): D62 - Acute posthemorrhagic anemia Status: Acute Assessment and Plan: hb low but stable after blood transfusion (4) History of CVA (cerebrovascular accident): Code(s): Z86.73 - Personal history of transient ischemic attack (TIA), and cerebral infarction without residual deficits Status: Acute (5) Dementia: Qualifiers: Dementia behavioral disturbance: with behavioral disturbance Dementia type: unspecified type Qualified Code(s): F03.91 - Unspecified dementia with behavioral disturbance Code(s): F03.90 - Unspecified dementia without behavioral disturbance Status: Acute Subjective Date/time seen: 05/29/20 09:26 Interval history: he is comfortably resting in bed, sitter at bedside and no report of any new events Review of Systems Review of Systems: All systems reviewed & are unremarkable except as noted in HPI and below Exam Const: General: comfortable and no acute distress HENMT: General nose exam: Normal nares present Eyes: General: appearance normal, both eyes and all related structures Neck: Neck: no JVD Resp: Auscultation: clear to auscultation bilaterally Cardio: Rate: regular rate Rhythm: regular rhythm GI: Inspection: non-distended GI Palp: Yes Soft to palpation Skin: General skin exam: normal color Neuro: General: gait normal Speech: normal speech Extrem: General: normal to inspection Psych: Mental Status: mental status grossly normal Objective Data Vital Signs Vital Signs: Vital Signs - 24 hr 05/28/20 09:30 05/28/20 14:00 05/28/20 20:00 Temperature 98.6 F 98.2 F 98.6 F Pulse Rate 69 68 68 Respiratory Rate 16 20 18 Blood Pressure 139/64 133/60 151/64 H Pulse Oximetry 96 100 99 05/29/20 04:00 Temperature 98.2 F Pulse Rate 74 Respiratory Rate 20 Blood Pressure 164/66 H Pulse Oximetry 98 Intake/Output Intake/Output: Intake & Output 05/26/20 05/27/20 05/28/20 05/29/20 23:59 23:59 23:59 23:59 Intake Total 600 3890 1200 120 Balance 600 3890 1200 120 Meds/Results Medications: Active Medications Generic Name Dose Route Start Last Admin Trade Name Freq PRN Reason Stop Dose Admin Acetaminophen 650 mg 05/28/20 12:20 05/28/20 12:44 Tylenol Tablet PO 650 mg Q6H PRN Administration Mild Pain (1-5) Or Fever Hydrocodone Bitart/Acetaminophen 1 tab 05/28/20 12:20 [place] 5-325 Mg PO Q6H PRN Pain Rated 6-10 Atorvastatin Calcium 10 mg 05/27/20 09:00 05/28/20 09:30 Lipitor PO 10 mg DAILY CHICHI Administration Citalopram Hydrobromide 10 mg 05/27/20 09:00 05/28/20 09:30 Celexa PO 10 mg DAILY CHICHI Administration Dextrose 12.5 gm 05/26/20 14:29 Dextrose 50% Syringe IV PUSH PRN PRN Hypoglycemia Protocol Donepezil HCl 5 mg 05/26/20 21:00 05/29/20 02:08 Aricept PO Not Given HS CHICHI Glimepiride 1 mg 05/27/20 09:00 05/28/20 09:30 Amaryl PO 1 mg QAM CHICHI Administration Glucagon 1 mg 05/26/20 14:29 Glucagon For Inj IM PRN PRN Hypoglycemia Protocol Glucose 15 gm 05/26/20 14:29 Glutose 15 PO PRN PRN Hypoglycemia
[2020-05-29] MEDS: MEMANTINE 5 MG TABLET PO (09:27)
[2020-05-29] MEDS: TAMSULOSIN HCL 0.4 MG CAPSULE PO (09:27)
[2020-05-29] MEDS: ATORVASTATIN 10 MG TABLET PO (09:27)
[2020-05-29] MEDS: GLIMEPIRIDE 1 MG TABLET PO (09:27)
[2020-05-29] MEDS: CITALOPRAM HYDROBROMIDE 10 MG TABLET PO (09:27)
[2020-05-29] MEDS: PANTOPRAZOLE SODIUM IV 40 MG VIAL IV PUSH ×2 (09:27→20:03)
[2020-05-29 11:43] LABS: Glucose Point of Care 184 (65-105)
--- NOTE | 2020-05-29 11:50 | PM.IMPN ---
Progress Note: A&P Assessment and Plan (1) GI bleed: Qualifiers: GI bleed type/associated pathology: unspecified gastrointestinal hemorrhage type Qualified Code(s): K92.2 - Gastrointestinal hemorrhage, unspecified Code(s): K92.2 - Gastrointestinal hemorrhage, unspecified Status: Acute Assessment and Plan: Hgb 5.2 on admission. Anemia related to GI bleed and EGD showing a gastric mass felt to be the source. Appreciate GI input. Patient received 2 units of packed red blood cells. Protonix started and Plavix held. The stated that he was having dark stools. No plans for colonoscopy at this time. Hgb dropped slightly to 6.9 (05/28) so another unit ordered. Hgb climbed to 7 range and remaining stable. Continue to monitor. Discussed with dtr by phone with 's permission. (2) Acute blood loss anemia: Code(s): D62 - Acute posthemorrhagic anemia Status: Acute Assessment and Plan: Hemoglobin 5.2 on admission. Most likely related to a GI bleed from the gastric mass. Patient was transfused 2 units of packed red blood cells. Hemoglobin climbed to the 7 range but back down this morning to 6.9 (8/) so repeat transfusion ordered. Hgb remaining stable in the 7 range. Will continue to monitor for stability and transfuse as needed. Iron studies consistent with iron deficiency to suggest this has been more longstanding. Will start iron. 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 Biopsies were taken. It appears neoplastic but pathology showing nonspecific acute gastritis with ulceration and necrotic tissue. Patient's has been informed of this. Oncology is following. GI aware and may need to repeat the EGD if deeper tissue path do not reveal etiology. (4) Right leg pain: Code(s): M79.604 - Pain in right leg Status: Acute Assessment and Plan: Exam is difficult but concern for possibly right hip etiology for his pain. Cannot exclude right knee or lumbar pathology. Right knee and hip showing osteoarthritis. No obvious bony abnormalities to suggest mets. CT of the lumbar spine also showing no acute findings to explain pain. Consider septic arthritis, gout or OA. Therapy is working with the patient and he does seem to favor the right leg. Some of generalized weakness is related to the anemia. Will proceed with CT pelvis and knee to exclude occult fracture and bony lesions. If effusion, may need to tap. (5) Dementia: Qualifiers: Dementia behavioral disturbance: with behavioral disturbance Dementia type: unspecified type Qualified Code(s): F03.91 - Unspecified dementia with behavioral disturbance Code(s): F03.90 - Unspecified dementia without behavioral disturbance Status: Acute Assessment and Plan: Dementia with behavioral disorder. Appears to get agitated mostly at night but calm now. Continue Namenda and Aricept. He was recently started on Celexa due to behavioral problems which was also continued. (6) BPH (benign prostatic hyperplasia): Code(s): N40.0 - Benign prostatic hyperplasia without lower urinary tract symptoms Status: Acute Assessment and Plan: Stable. Continue with tamsulosin. (7) HTN (hypertension), malignant: Code(s): I10 - Essential (primary) hypertension Status: Chronic Assessment and Plan: Patient's blood pressure was reviewed on 05/29. Blood pressure higher today. Resume Lisinopril. (8) History of CVA (cerebrovascular accident): Code(s): Z86.73 - Personal history of transient ischemic attack (TIA), and cerebral infarction without residual deficits Status: Acute Assessment and Plan: Plavix on hold due to blood loss anemia. Continue atorvastatin. (9) DM2 (diabetes mellitus, type 2): C
[2020-05-29 14:00] VITALS: BP 139/63; PULSE 72; RESP 20; TEMP 37.2; O2SAT 98
[2020-05-29 14:58] LABS: SARS-CoV-2 RNA PCR Negative
[2020-05-29] MEDS: lisinopriL 10 MG TABLET PO (16:18)
[2020-05-29] MEDS: FERROUS SULFATE 324 MG TABLET PO (16:19)
[2020-05-29 16:39] LABS: Glucose Point of Care 176 (65-105)
[2020-05-29 20:00] VITALS: BP 149/70; PULSE 73; RESP 18; TEMP 38; O2SAT 96
[2020-05-29] MEDS: DONEPEZIL HCL 5 MG TABLET PO (20:03)
[2020-05-29 21:21] LABS: Glucose Point of Care 203 (65-105)
[2020-05-30 04:00] VITALS: BP 150/61; PULSE 82; RESP 18; TEMP 37.2; O2SAT 92
[2020-05-30 05:13] LABS: Hematocrit 23.6 % (42.0-52.0); Hemoglobin 7.3 g/dL (14.0-18.0); Mean Corpuscular HGB Conc 30.9 g/dl (32-36); Mean Corpuscular Hemoglobin 25.2 pg (26-34); Mean Corpuscular Volume 81.4 fl (80-100); Mean Platelet Volume 10.9 fl (7.4-10.4); Platelet Count Result 296 k/mm3 (150-375); Red Cell Distribution Width 17.8 % (11.5-14.5); White Blood Count 12.2 K/mm3 (4.5-10.0)
[2020-05-30 05:26] LABS: Anion Gap 6 mmol/L (8-16); Blood Urea Nitrogen 13 mg/dL (9-20); Calcium 7.9 mg/dL (8.4-10.2); Carbon Dioxide 26 mmol/L (22-30); Chloride 104 mmol/L (98-107); Estimated CRCL calculation 65 ml/min; Estimated Glomerular Filt Rate > 60; Glucose 122 mg/dL (75-110); Potassium 3.3 mmol/L (3.4-5.0); Sodium 136 mmol/L (137-145)
[2020-05-30 08:12] LABS: Glucose Point of Care 124 (65-105)
[2020-05-30] MEDS: lisinopriL 10 MG TABLET PO (09:21)
[2020-05-30] MEDS: CITALOPRAM HYDROBROMIDE 10 MG TABLET PO (09:21)
[2020-05-30] MEDS: POTASSIUM CHLORIDE 20 MEQ TABLET 40 MEQ PO (09:21)
[2020-05-30] MEDS: FERROUS SULFATE 324 MG TABLET PO ×2 (09:21→17:13)
[2020-05-30] MEDS: ATORVASTATIN 10 MG TABLET PO (09:21)
[2020-05-30] MEDS: TAMSULOSIN HCL 0.4 MG CAPSULE PO (09:22)
[2020-05-30] MEDS: MEMANTINE 5 MG TABLET PO (09:22)
[2020-05-30] MEDS: GLIMEPIRIDE 1 MG TABLET PO (09:36)
[2020-05-30] MEDS: PANTOPRAZOLE 40 MG TABLET PO ×2 (09:36→21:05)
[2020-05-30 11:17] LABS: Glucose Point of Care 210 (65-105)
[2020-05-30] MEDS: INSULIN ASPART (*BKC) 100 UNITS/ML SUB-Q (11:28)
--- NOTE | 2020-05-30 12:50 | WPDGIPROGNO ---
Progress Note: A&P Assessment and Plan (1) Gastric mass: Code(s): K31.89 - Other diseases of stomach and duodenum Status: Acute Assessment and Plan: egd found large ulcerated area in fundus of stomach which was concerning for malignancy however biopsies c/w debris/ulcers but did not see neoplastic tissue (pathologist awaiting for further workup to include deeper levels of tissue sample). I discussed with about this findings, if final path report negative then I will do EGD in 3 weeks for 2 reasons- 1. assess if ulcer is healing, 2. obtain several more biopsies to definitive rule out malignancy. continue with skilled nursing PPI twice daily and avoid any blood thinners or nsaid's (2) Melena: Code(s): K92.1 - Melena Status: Acute Assessment and Plan: resolved and due to large ulcerated area in stomach hb stable 7.5-8 (3) Acute blood loss anemia: Code(s): D62 - Acute posthemorrhagic anemia Status: Acute Assessment and Plan: hb low but stable after blood transfusion (4) History of CVA (cerebrovascular accident): Code(s): Z86.73 - Personal history of transient ischemic attack (TIA), and cerebral infarction without residual deficits Status: Acute (5) Dementia: Qualifiers: Dementia behavioral disturbance: with behavioral disturbance Dementia type: unspecified type Qualified Code(s): F03.91 - Unspecified dementia with behavioral disturbance Code(s): F03.90 - Unspecified dementia without behavioral disturbance Status: Acute (6) Right leg pain: Code(s): M79.604 - Pain in right leg Status: Acute Assessment and Plan: by primary team, more imaging Subjective Date/time seen: 05/30/20 12:50 Interval history: he is eating without any problem, his only discomfort if pain in Rt knee. is at bedside Review of Systems Review of Systems: All systems reviewed & are unremarkable except as noted in HPI and below Exam Const: General: comfortable and no acute distress Other: slightly confused but pleasant, having lunch HENMT: General nose exam: Normal nares present Eyes: General: appearance normal, both eyes and all related structures Neck: Neck: no JVD Resp: Auscultation: clear to auscultation bilaterally Cardio: Rate: regular rate Rhythm: regular rhythm GI: Inspection: non-distended GI Palp: Yes Soft to palpation Auscultation: normal bowel sounds Skin: General skin exam: normal color Neuro: Speech: normal speech Other: awake and alert, sometimes gets confused Extrem: Other: pain right knee Psych: Speech and movement: Normal speech and movement present Objective Data Vital Signs Vital Signs: Vital Signs - 24 hr 05/29/20 14:00 05/29/20 20:00 05/30/20 04:00 Temperature 99 F 100.4 F H 99 F Pulse Rate 72 73 82 Respiratory Rate 20 18 18 Blood Pressure 139/63 149/70 H 150/61 H Pulse Oximetry 98 96 92 Intake/Output Intake/Output: Intake & Output 05/27/20 05/28/20 05/29/20 05/30/20 23:59 23:59 23:59 23:59 Intake Total 3890 1200 710 0 Output Total 125 Balance 3890 1200 585 0 Meds/Results Medications: Active Medications Generic Name Dose Route Start Last Admin Trade Name Freq PRN Reason Stop Dose Admin Acetaminophen 650 mg 05/28/20 12:20 05/28/20 12:44 Tylenol Tablet PO 650 mg Q6H PRN Administration Mild Pain (1-5) Or Fever Acetaminophen 650 mg 05/30/20 12:45 Tylenol Tablet PO Q6HR CHICHI Hydrocodone Bitart/Acetaminophen 1 tab 05/28/20 12:20 05/30/20 11:28 [place] 5-325 Mg PO 1 tab Q6H PRN Administration Pain Rated 6-10 Atorvastatin Calcium 10 mg 05/27/20 09:00 05/30/20 09:21 Lipitor PO 10 mg DAILY CHICHI Administration Citalopram Hydrobromide 10 mg 05/27/20 09:00 05/30/20 09:21 Celexa PO 10 mg DAILY CHICHI Administration Dextrose 12.5 gm 05/26/20 14:29 Dextrose 50% Syringe IV PUSH PRN PRN Hypoglycemia
--- NOTE | 2020-05-30 13:07 | PC.NURSE ---
Dr Locke requests Radiologist to aspirate pt right knee with labs today.
--- NOTE | 2020-05-30 13:24 | PCOTNOTE ---
Attempted to see patient for therapy, but was unable to keep patient roused 05/30/2020.
[2020-05-30 13:28] LABS: Uric Acid 2.7 mg/dL (3.5-8.5)
[2020-05-30] MEDS: ACETAMINOPHEN 325 MG TABLET 650 MG PO ×2 (13:59→17:13)
[2020-05-30 14:10] VITALS: BP 125/60; PULSE 64; RESP 18; TEMP 36.8; O2SAT 99
--- NOTE | 2020-05-30 14:34 | PM.IMPN ---
Progress Note: A&P Assessment and Plan (1) GI bleed: Qualifiers: GI bleed type/associated pathology: unspecified gastrointestinal hemorrhage type Qualified Code(s): K92.2 - Gastrointestinal hemorrhage, unspecified Code(s): K92.2 - Gastrointestinal hemorrhage, unspecified Status: Acute Assessment and Plan: Hgb 5.2 on admission. The stated that he was having dark stools prior to admission. Anemia related to GI bleed and EGD showing a gastric mass felt to be the source. Appreciate GI input. Patient received 2 units of packed red blood cells. Protonix started and Plavix held. No plans for colonoscopy at this time. Hgb dropped slightly to 6.9 (05/28) so another unit ordered. Hgb climbed to 7-8 range and remaining stable. Continue to monitor. (2) Acute blood loss anemia: Code(s): D62 - Acute posthemorrhagic anemia Status: Acute Assessment and Plan: Hemoglobin 5.2 on admission. Most likely related to a GI bleed from the gastric mass. Patient was transfused 2 units of packed red blood cells. Hemoglobin climbed to the 7 range but back down to 6.9 (05/28) so repeat transfusion ordered. Hgb remaining stable in the 7-8 range. Will continue to monitor for stability and transfuse as needed. Iron studies consistent with iron deficiency to suggest this has been more longstanding. Iron started (3) Gastric mass: Code(s): K31.89 - Other diseases of stomach and duodenum Status: Acute Assessment and Plan: EGD showing a 4 cm gastric mass. Biopsies were taken. It appears neoplastic but pathology showing nonspecific acute gastritis with ulceration and necrotic tissue. Patient's has been informed of this. Oncology is following. GI aware and may need to repeat the EGD if deeper tissue path do not reveal etiology. (4) Right leg pain: Code(s): M79.604 - Pain in right leg Status: Acute Assessment and Plan: Exam is difficult but concern for possibly right knee etiology for his pain. CT of the lumbar spine showing no acute findings to explain pain. CT pelvis and right knee showing small knee effusion but no acute process. Possibly related to right knee and hip osteoarthritis. No obvious bony abnormalities to suggest mets. Consider septic arthritis given the fever or (psuedo)gout. Uric acid 2.7. Therapy is working with the patient. Ortho consult for possible injection. Hold on abx. (5) Dementia: Qualifiers: Dementia behavioral disturbance: with behavioral disturbance Dementia type: unspecified type Qualified Code(s): F03.91 - Unspecified dementia with behavioral disturbance Code(s): F03.90 - Unspecified dementia without behavioral disturbance Status: Acute Assessment and Plan: Dementia with behavioral disorder. Appears to get agitated mostly at night but calm now. Continue Namenda and Aricept. He was recently started on Celexa due to behavioral problems which was also continued. (6) BPH (benign prostatic hyperplasia): Code(s): N40.0 - Benign prostatic hyperplasia without lower urinary tract symptoms Status: Acute Assessment and Plan: Stable. Continue with tamsulosin. (7) HTN (hypertension), malignant: Code(s): I10 - Essential (primary) hypertension Status: Chronic Assessment and Plan: Patient's blood pressure was reviewed on 05/30. Blood pressure mildly elevated at times. Continue lisinopril for now. (8) History of CVA (cerebrovascular accident): Code(s): Z86.73 - Personal history of transient ischemic attack (TIA), and cerebral infarction without residual deficits Status: Acute Assessment and Plan: Plavix on hold due to blood loss anemia. Continue atorvastatin. (9) DM2 (diabetes mellitus, type 2): Code(s): E11.9 - Type 2 diabetes mellitus without complications Status: Chronic Assessment and Plan: The
--- NOTE | 2020-05-30 16:45 | PC.NURSE ---
This patient, Marek Carrasco, was received from [facility] on 05/30/20 at 1645. Personal belongings list checked and signed. Patient/family oriented to unit policies and routines
[2020-05-30 16:49] LABS: Glucose Point of Care 171 (65-105)
[2020-05-30] MEDS: metFORMIN HCL 500 MG TABLET PO (17:13)
[2020-05-30 17:23] LABS: Crystals Synovial Fluid None Seen (None Seen)
[2020-05-30 17:33] LABS: Appearance Synovial Fluid Cloudy (Clear); Color Synovial Fluid Yellow (Colorless); Source Synovial Fluid Synovial fluid
[2020-05-30 17:34] LABS: Monocytes Synovial Fluid 6 %; Neutrophils Synovial Fluid 94 % (0-25); Nucleated Cell Synovial Fluid 7988 /uL (0-200); RBC Synovial Fluid 196 /uL (0-0)
[2020-05-30 18:37] LABS: Hemoglobin 7.7 g/dL (14.0-18.0)
[2020-05-30] MEDS: DONEPEZIL HCL 5 MG TABLET PO (21:05)
[2020-05-30 21:16] LABS: Glucose Point of Care 171 (65-105)
[2020-05-30 21:51] VITALS: TEMP 37.2
[2020-05-30 21:52] VITALS: BP 143/62; PULSE 62; RESP 16; TEMP 37.2; O2SAT 98
[2020-05-31 00:32] LABS: Hematocrit 23.5 % (42.0-52.0); Hemoglobin 7.2 g/dL (14.0-18.0)
[2020-05-31] MEDS: ACETAMINOPHEN 325 MG TABLET 650 MG PO ×4 (00:34→18:32)
[2020-05-31 05:46] LABS: Hematocrit 24.8 % (42.0-52.0); Hemoglobin 7.7 g/dL (14.0-18.0); Mean Corpuscular Hemoglobin 25.2 pg (26-34); Mean Platelet Volume 10.7 fl (7.4-10.4); Platelet Count Result 311 k/mm3 (150-375); Red Blood Count 3.06 M/mm3 (4.6-6.20); Red Cell Distribution Width 17.9 % (11.5-14.5); White Blood Count 11.7 K/mm3 (4.5-10.0)
[2020-05-31 05:56] LABS: Anion Gap 6 mmol/L (8-16); Blood Urea Nitrogen 15 mg/dL (9-20); Calcium 8.1 mg/dL (8.4-10.2); Carbon Dioxide 27 mmol/L (22-30); Chloride 106 mmol/L (98-107); Estimated CRCL calculation 65 ml/min; Estimated Glomerular Filt Rate > 60; Glucose 115 mg/dL (75-110); Magnesium 2.2 mg/dL (1.6-2.3); Potassium 3.9 mmol/L (3.4-5.0); Sodium 139 mmol/L (137-145)
[2020-05-31 06:00] VITALS: BP 141/72; PULSE 71; RESP 16; TEMP 37.1; O2SAT 99
[2020-05-31 08:08] LABS: Glucose Point of Care 117 (65-105)
[2020-05-31] MEDS: CITALOPRAM HYDROBROMIDE 10 MG TABLET PO (09:14)
[2020-05-31] MEDS: ATORVASTATIN 10 MG TABLET PO (09:14)
[2020-05-31] MEDS: TAMSULOSIN HCL 0.4 MG CAPSULE PO (09:15)
[2020-05-31] MEDS: lisinopriL 10 MG TABLET PO (09:15)
[2020-05-31] MEDS: metFORMIN HCL 500 MG TABLET PO ×2 (09:15→16:55)
[2020-05-31] MEDS: PANTOPRAZOLE 40 MG TABLET PO ×2 (09:15→22:13)
[2020-05-31] MEDS: MEMANTINE 5 MG TABLET PO (09:15)
[2020-05-31] MEDS: GLIMEPIRIDE 1 MG TABLET PO (09:15)
--- NOTE | 2020-05-31 09:15 | WPDGIPROGNO ---
Progress Note: A&P Assessment and Plan (1) Gastric mass: Code(s): K31.89 - Other diseases of stomach and duodenum Status: Acute Assessment and Plan: egd found large ulcerated area in fundus of stomach which was concerning for malignancy however biopsies c/w debris/ulcers but did not see neoplastic tissue (pathologist awaiting for further workup to include deeper levels of tissue sample). If final path report negative then I will do EGD in 3 weeks for 2 reasons- 1. assess if ulcer is healing, 2. obtain several more biopsies to definitive rule out malignancy. continue with correction PPI twice daily and avoid any blood thinners or nsaid's (2) Melena: Code(s): K92.1 - Melena Status: Acute Assessment and Plan: resolved and due to large ulcerated area in stomach hb has been fairly stable 7.5-8 (3) Acute blood loss anemia: Code(s): D62 - Acute posthemorrhagic anemia Status: Acute (4) History of CVA (cerebrovascular accident): Code(s): Z86.73 - Personal history of transient ischemic attack (TIA), and cerebral infarction without residual deficits Status: Acute (5) Dementia: Qualifiers: Dementia behavioral disturbance: with behavioral disturbance Dementia type: unspecified type Qualified Code(s): F03.91 - Unspecified dementia with behavioral disturbance Code(s): F03.90 - Unspecified dementia without behavioral disturbance Status: Acute (6) Right leg pain: Code(s): M79.604 - Pain in right leg Status: Acute Assessment and Plan: by primary team Subjective Date/time seen: 05/31/20 09:15 Interval history: no new events, he is eating breakfast, only complain is leg pain Review of Systems Review of Systems: All systems reviewed & are unremarkable except as noted in HPI and below Exam Const: General: comfortable and no acute distress Other: slightly confused but pleasant, having lunch HENMT: General nose exam: Normal nares present Eyes: General: appearance normal, both eyes and all related structures Neck: Neck: no JVD Resp: Auscultation: clear to auscultation bilaterally Cardio: Rate: regular rate Rhythm: regular rhythm GI: Inspection: non-distended GI Palp: Yes Soft to palpation Auscultation: normal bowel sounds Skin: General skin exam: normal color Neuro: Speech: normal speech Other: awake and alert, sometimes gets confused Extrem: Other: pain right knee Psych: Speech and movement: Normal speech and movement present Objective Data Vital Signs Vital Signs: Vital Signs - 24 hr 05/30/20 14:10 05/30/20 21:51 05/30/20 21:52 Temperature 98.3 F 98.9 F 98.9 F Pulse Rate 64 62 Respiratory Rate 18 16 Blood Pressure 125/60 143/62 H Pulse Oximetry 99 98 05/31/20 06:00 Temperature 98.8 F Pulse Rate 71 Respiratory Rate 16 Blood Pressure 141/72 H Pulse Oximetry 99 Intake/Output Intake/Output: Intake & Output 05/28/20 05/29/20 05/30/20 05/31/20 23:59 23:59 23:59 23:59 Intake Total 1200 710 660 Output Total 125 15 Balance 1200 585 645 Meds/Results Medications: Active Medications Generic Name Dose Route Start Last Admin Trade Name Freq PRN Reason Stop Dose Admin Acetaminophen 650 mg 05/28/20 12:20 05/28/20 12:44 Tylenol Tablet PO 650 mg Q6H PRN Administration Mild Pain (1-5) Or Fever Acetaminophen 650 mg 05/30/20 12:45 05/31/20 05:54 Tylenol Tablet PO 650 mg Q6HR CHICHI Administration Hydrocodone Bitart/Acetaminophen 1 tab 05/28/20 12:20 05/30/20 11:28 [place] 5-325 Mg PO 1 tab Q6H PRN Administration Pain Rated 6-10 Atorvastatin Calcium 10 mg 05/27/20 09:00 05/30/20 09:21 Lipitor PO 10 mg DAILY CHICHI Administration Citalopram Hydrobromide 10 mg 05/27/20 09:00 05/30/20 09:21 Celexa PO 10 mg DAILY CHICHI Administration Dextrose 12.5 gm 05/26/20 14:29 Dextrose 50% Syringe IV PUSH PRN PRN Hypoglycemia
[2020-05-31] MEDS: FERROUS SULFATE 324 MG TABLET PO ×2 (10:32→16:55)
[2020-05-31 12:02] LABS: Glucose Point of Care 158 (65-105)
--- NOTE | 2020-05-31 13:02 | PM.CNOR ---
Assessment and Plan Assessment and plan (1) Right knee pain: Qualifiers: Chronicity: acute Qualified Code(s): M25.561 - Pain in right knee Code(s): M25.561 - Pain in right knee Status: Acute Assessment and Plan: 80-year-old male with a pain in his right knee. It really seems to be isolated to the medial joint line at this point. I reviewed the radiographic studies including his back, his hips and his knees. 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 He may be symptomatic from pseudogout, in addition to what is probably a medial meniscal tear. His white cell count the knee aspirate was about a 8000 which is consistent with an inflammatory process and not infectious . His consents to a steroid injection which he tolerated just fine. This was done with 3 mL of 1% lidocaine and 20 mg of Kenalog using sterile technique and without incident. Thank you for the consultation. I will follow along while he is in the hospital. History of Present Illness HPI Consult date: 05/31/20 Consult reason: joint pain Chief complaint: weakness/anemia/GI bleed/dementia Narrative: 80-year-old male who has been hospitalized for blood-loss anemia. One day prior to admission according to his who is his caregiver he developed pain in his right knee making it difficult for him to walk. She stated no problems like this previous. He is confused but he is articulated he has got pain right at the medial aspect of his right knee along the joint line. He denies any other joint or extremity pain this point. Specifically says no hip, buttock or back pain. Also says he has no numbness or tingling in his right leg. Review of Systems Eyes: Eyes: Reports no additional eye complaints ENT: Reports system reviewed and no additional complaints, except as documented Cardiovascular: Cardiovascular: Denies chest pain Respiratory: Respiratory: Reports no additional respiratory complaints Gastrointestinal: Gastrointestinal: Denies abdominal pain PMFSH Past Medical History Medical History BPH (benign prostatic hyperplasia) Dementia Diarrhea DM2 (diabetes mellitus, type 2) History of CVA (cerebrovascular accident) HTN (hypertension), malignant Hyperlipidemia Melena Symptomatic anemia Weakness Surgical History Surgical History No pertinent past surgical history Family History Family History Mother Cerebrovascular accident Father Acute myocardial infarction Social History Social History Social History: the patient lives with his and has 2 children. The states that he is a full code at this time. Patient used to smoke cigars open to the time that he had a stroke but then has not since then. Does not use any marijuana or illicit drugs. He is retired from working as a [employer]. Smoking status: Former smoker Tobacco type: cigars Alcohol intake: never Substance use: never Gender identity (if verbalized by the patient): Male Spiritual care concerns: No Meds Home Medications and Allergies Home Medications Medication Instructions Recorded Confirmed Type atorvastatin 20 mg PO DAILY 05/26/20 05/26/20 History citalopram 10 mg PO DAILY 05/26/20 05/26/20 History clopidogrel 75 mg PO DAILY 05/26/20 05/26/20 History donepezil 10 mg PO HS 05/26/20 05/26/20 History glimepiride 4 mg PO QAM 05/26/20 05/26/20 History lisinopril 10 mg PO DAILY 05/26/20 05/26/20 History memantine 10 mg PO QAM 05/26/20 05/26/20 History metformin 500 mg PO BID 05/26/20 05/26/20 History tamsulosin 0.4 mg PO DAILY 05/26/20 05/26/20 History Allergies Allergy/AdvReac Type Severity Reaction Status Date / Time No Known Allergies Allergy Unverified 05/26/20 09
--- NOTE | 2020-05-31 13:17 | PC.NURSE ---
Dr. Locke at bedside. Left knee injected with Kenalog per Dr. Locke. Patient tolerated well. Bandaid applied to site.
[2020-05-31 13:48] VITALS: BP 116/54; PULSE 66; RESP 14; TEMP 36.6; O2SAT 100
--- NOTE | 2020-05-31 15:57 | PM.IMPN ---
Progress Note: A&P Assessment and Plan (1) GI bleed: Qualifiers: GI bleed type/associated pathology: unspecified gastrointestinal hemorrhage type Qualified Code(s): K92.2 - Gastrointestinal hemorrhage, unspecified Code(s): K92.2 - Gastrointestinal hemorrhage, unspecified Status: Acute Assessment and Plan: Hgb 5.2 on admission. Anemia related to GI bleed and EGD showing a gastric mass felt to be the source. Appreciate GI input. Patient received 2 units of packed red blood cells. Protonix started and Plavix held. The stated that he was having dark stools. No plans for colonoscopy at this time. Hgb dropped slightly to 6.9 (8/) so another unit ordered. Hgb climbed to 7 range and remaining stable. Continue to monitor. Discussed with dtr by phone with 's permission. (2) Acute blood loss anemia: Code(s): D62 - Acute posthemorrhagic anemia Status: Acute Assessment and Plan: Hemoglobin 5.2 on admission. Most likely related to a GI bleed from the gastric mass. Patient was transfused 2 units of packed red blood cells. Hemoglobin climbed to the 7 range but back down to 6.9 (8/) so repeat transfusion ordered. Hgb remaining stable in the 7 range since. Will continue to monitor for stability and transfuse as needed. Iron studies consistent with iron deficiency to suggest this has been more longstanding. Continue iron. 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 Biopsies were taken. It appears neoplastic but pathology showing nonspecific acute gastritis with ulceration and necrotic tissue. CT A/P showing no acute findings. Patient's has been informed of this. Oncology is following. GI aware and may need to repeat the EGD if deeper tissue path do not reveal etiology. (4) Right leg pain: Code(s): M79.604 - Pain in right leg Status: Acute Assessment and Plan: Exam is difficult. 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 No obvious bony abnormalities to suggest mets. CT of the lumbar spine also showing no acute findings to explain pain. Consider septic arthritis, gout or OA. Therapy is working with the patient and he does seem to favor the right leg. Some of generalized weakness is related to the anemia. Ortho was consulted and arthrocentesis yesterday. No crystals. Abx started but discussed with ortho later and he felt okay to hold abx while we wait for cx results. He went ahead and injected the knee. (5) Dementia: Qualifiers: Dementia behavioral disturbance: with behavioral disturbance Dementia type: unspecified type Qualified Code(s): F03.91 - Unspecified dementia with behavioral disturbance Code(s): F03.90 - Unspecified dementia without behavioral disturbance Status: Acute Assessment and Plan: Dementia with behavioral disorder. Appears to get agitated mostly at night but calm now. Continue Namenda and Aricept. He was recently started on Celexa due to behavioral problems which was also continued. (6) BPH (benign prostatic hyperplasia): Code(s): N40.0 - Benign prostatic hyperplasia without lower urinary tract symptoms Status: Acute Assessment and Plan: Stable. Continue with tamsulosin. (7) HTN (hypertension), malignant: Code(s): I10 - Essential (primary) hypertension Status: Chronic Assessment and Plan: Patient's blood pressure was reviewed on 05/31. Blood pressure elevated at times. Advance Lisinopril. (8) History of CVA (cerebrovascular accident): Code(s): Z86.73 - Personal history of transient ischemic attack (TIA), and cerebral infarction without residual deficits Status: Acute Assessment and Plan: Plavix on hold due to blood loss anemia. Continue atorvastatin. (9) DM
[2020-05-31 17:04] LABS: Glucose Point of Care 158 (65-105)
[2020-05-31 20:21] LABS: Glucose Point of Care 203 (65-105)
[2020-05-31 22:00] VITALS: BP 140/55; PULSE 70; RESP 20; TEMP 36.9; O2SAT 98
[2020-05-31] MEDS: DONEPEZIL HCL 5 MG TABLET PO (22:13)
[2020-06-01] MEDS: ACETAMINOPHEN 325 MG TABLET 650 MG PO ×4 (01:02→17:14)
[2020-06-01 05:35] LABS: Hematocrit 25.4 % (42.0-52.0); Hemoglobin 7.7 g/dL (14.0-18.0); Mean Corpuscular HGB Conc 30.3 g/dl (32-36); Mean Corpuscular Hemoglobin 24.8 pg (26-34); Mean Corpuscular Volume 81.7 fl (80-100); Mean Platelet Volume 10.7 fl (7.4-10.4); Platelet Count Result 317 k/mm3 (150-375); Red Blood Count 3.11 M/mm3 (4.6-6.20); White Blood Count 10.2 K/mm3 (4.5-10.0)
[2020-06-01 05:57] LABS: Anion Gap 6 mmol/L (8-16); Blood Urea Nitrogen 17 mg/dL (9-20); Calcium 8.1 mg/dL (8.4-10.2); Carbon Dioxide 26 mmol/L (22-30); Chloride 105 mmol/L (98-107); Estimated CRCL calculation 74 ml/min; Estimated Glomerular Filt Rate > 60; Glucose 112 mg/dL (75-110); Potassium 4.2 mmol/L (3.4-5.0); Sodium 137 mmol/L (137-145)
[2020-06-01 06:00] VITALS: BP 140/61; PULSE 63; RESP 18; TEMP 36.6; O2SAT 96
[2020-06-01 07:58] LABS: Glucose Point of Care 115 (65-105)
[2020-06-01] MEDS: GLIMEPIRIDE 1 MG TABLET PO (08:58)
[2020-06-01] MEDS: TAMSULOSIN HCL 0.4 MG CAPSULE PO (08:58)
[2020-06-01] MEDS: metFORMIN HCL 500 MG TABLET PO ×2 (08:58→17:14)
[2020-06-01] MEDS: PANTOPRAZOLE 40 MG TABLET PO ×2 (08:59→20:00)
[2020-06-01] MEDS: lisinopriL 20 MG TABLET PO (08:59)
[2020-06-01] MEDS: MEMANTINE 5 MG TABLET PO (08:59)
[2020-06-01] MEDS: ATORVASTATIN 10 MG TABLET PO (08:59)
[2020-06-01] MEDS: CITALOPRAM HYDROBROMIDE 10 MG TABLET PO (08:59)
[2020-06-01] MEDS: FERROUS SULFATE 324 MG TABLET PO (08:59)
[2020-06-01 11:46] LABS: Glucose Point of Care 154 (65-105)
--- NOTE | 2020-06-01 11:57 | PM.PNORT ---
Progress Note: A&P Assessment and Plan (1) Right knee pain: Qualifiers: Chronicity: acute Qualified Code(s): M25.561 - Pain in right knee Code(s): M25.561 - Pain in right knee Status: Acute Assessment and Plan: 80-year-old male with primary osteoarthritis and chondrocalcinosis in his right knee. I suspect he has an intermittently symptomatic meniscal tear. The injection seems to have provided him good relief. Follow up p.r.n.. Subjective Subjective Date/Time Seen: 06/01/20 11:57 Principal diagnosis: Right knee pain Interval history: 80-year-old male with osteoarthritis and chondrocalcinosis in his right knee. He had an injection yesterday and today his symptoms have diminished considerably. Exam Extrem: Other: Right knee exam today shows no swelling and little to no tenderness at the anteromedial joint line. Injection site unremarkable. He moves his knee quite freely in bed now with no issues. Objective Data Vital Signs Vital Signs: Vital Signs - 24 hr 05/31/20 13:48 05/31/20 22:00 06/01/20 06:00 Temperature 97.9 F 98.4 F 97.8 F Pulse Rate 66 70 63 Respiratory Rate 14 20 18 Blood Pressure 116/54 L 140/55 L 140/61 Pulse Oximetry 100 98 96 Intake/Output Intake/Output: Intake & Output 05/29/20 05/30/20 05/31/20 06/01/20 23:59 23:59 23:59 23:59 Intake Total 710 / 710 660 / 660 840 / 840 690 / 690 Output Total 125 / 125 15 / 15 Balance 585 / 585 645 / 645 840 / 840 690 / 690 Meds/Results Medications: Active Medications Generic Name Dose Route Start Last Admin Trade Name Freq PRN Reason Stop Dose Admin Acetaminophen 650 mg 05/28/20 12:20 05/28/20 12:44 Tylenol Tablet PO 650 mg Q6H PRN Administration Mild Pain (1-5) Or Fever Acetaminophen 650 mg 05/30/20 12:45 06/01/20 06:42 Tylenol Tablet PO 650 mg Q6HR CHICHI Administration Hydrocodone Bitart/Acetaminophen 1 tab 05/28/20 12:20 05/31/20 16:56 [place] 5-325 Mg PO 1 tab Q6H PRN Administration Pain Rated 6-10 Atorvastatin Calcium 10 mg 05/27/20 09:00 06/01/20 08:59 Lipitor PO 10 mg DAILY CHICHI Administration Citalopram Hydrobromide 10 mg 05/27/20 09:00 06/01/20 08:59 Celexa PO 10 mg DAILY CHICHI Administration Dextrose 12.5 gm 05/26/20 14:29 Dextrose 50% Syringe IV PUSH PRN PRN Hypoglycemia Protocol Donepezil HCl 5 mg 05/26/20 21:00 05/31/20 22:13 Aricept PO 5 mg HS CHICHI Administration Ferrous Sulfate 324 mg 05/29/20 17:00 06/01/20 08:59 Ferrous Sulfate PO 324 mg BIDWM CHICHI Administration Glimepiride 1 mg 05/27/20 09:00 06/01/20 08:58 Amaryl PO 1 mg QAM CHICHI Administration Glucagon 1 mg 05/26/20 14:29 Glucagon For Inj IM PRN PRN Hypoglycemia Protocol Glucose 15 gm 05/26/20 14:29 Glutose 15 PO PRN PRN Hypoglycemia Protocol Dextrose 1,000 mls @ 100 mls/hr 05/26/20 14:29 Dextrose 5% 1,000 Ml IVPB PRN PRN Hypoglycemia Protocol Insulin Aspart 2 - 5 units 05/26/20 17:00 06/01/20 08:59 Novolog SUB-Q Not Given TIDWM [facility] Protocol Lisinopril 20 mg 06/01/20 09:00 06/01/20 08:59 Prinivil PO 20 mg QAM CHICHI Administration Memantine 5 mg 05/27/20 09:00 06/01/20 08:59 Namenda PO 5 mg QAM CHICHI Administration Metformin HCl 500 mg 05/30/20 17:00 06/01/20 08:58 Glucophage PO 500 mg BID CHICHI Administration Pantoprazole Sodium 40 mg 05/30/20 09:00 06/01/20 08:59 Protonix PO 40 mg Q12HR CHICHI Administration Tamsulosin HCl 0.4 mg 05/27/20 09:00 06/01/20 08:58 Flomax PO 0.4 mg DAILY CHICHI Administration Radiology Results: ITS Impressions Chest X-Ray 05/26/20 09:58 IMPRESSION: 1. No acute cardiopulmonary abnormality. Head CT 05/26/20 10:36 IMPRESSION: 1. Old lacunar infarcts in the thalami and marlena. 2. Worsened moderate nonspecific cerebral white matter disease,
[2020-06-01 13:28] LABS: SARS-CoV-2 RNA PCR Negative
[2020-06-01 14:00] VITALS: BP 116/59; PULSE 60; RESP 14; TEMP 36.8; O2SAT 100
--- NOTE | 2020-06-01 14:31 | WPDGIPROGNO ---
Progress Note: A&P Assessment and Plan (1) Gastric mass: Code(s): K31.89 - Other diseases of stomach and duodenum Status: Acute Assessment and Plan: egd found large ulcerated area in fundus of stomach which was concerning for malignancy, path report was reviewed today and suspicious for malignancy but pathologist recommend to get more biopsies for definitive diagnosis I discussed with and she is agreeable to have another EGD tomorrow for more biopsies, then will need follow up with oncology to discuss option of treatments if indeed we confirm the diagnosis in the meantime continue with long term care phlebotomist PPI twice daily and avoid any blood thinners or nsaid's (2) Melena: Code(s): K92.1 - Melena Status: Acute Assessment and Plan: resolved and due to large ulcerated area in stomach hb has been fairly stable 7.5-8 (3) Acute blood loss anemia: Code(s): D62 - Acute posthemorrhagic anemia Status: Acute (4) History of CVA (cerebrovascular accident): Code(s): Z86.73 - Personal history of transient ischemic attack (TIA), and cerebral infarction without residual deficits Status: Acute (5) Dementia: Qualifiers: Dementia behavioral disturbance: with behavioral disturbance Dementia type: unspecified type Qualified Code(s): F03.91 - Unspecified dementia with behavioral disturbance Code(s): F03.90 - Unspecified dementia without behavioral disturbance Status: Acute (6) Right leg pain: Code(s): M79.604 - Pain in right leg Status: Acute Assessment and Plan: evaluated by ortho, better after injection Subjective Date/time seen: 06/01/20 14:31 Interval history: no new events, is at bedside, patient is getting therapy Review of Systems Review of Systems: All systems reviewed & are unremarkable except as noted in HPI and below Exam Const: General: comfortable and no acute distress Other: slightly confused but pleasant HENMT: General nose exam: Normal nares present Eyes: General: appearance normal, both eyes and all related structures Neck: Neck: no JVD Resp: Auscultation: clear to auscultation bilaterally Cardio: Rate: regular rate Rhythm: regular rhythm GI: Inspection: non-distended GI Palp: Yes Soft to palpation Auscultation: normal bowel sounds Skin: General skin exam: normal color Neuro: Speech: normal speech Other: awake and alert, sometimes gets confused Extrem: Other: pain right knee Psych: Speech and movement: Normal speech and movement present Objective Data Vital Signs Vital Signs: Vital Signs - 24 hr 05/31/20 22:00 06/01/20 06:00 Temperature 98.4 F 97.8 F Pulse Rate 70 63 Respiratory Rate 20 18 Blood Pressure 140/55 L 140/61 Pulse Oximetry 98 96 Intake/Output Intake/Output: Intake & Output 05/29/20 05/30/20 05/31/20 06/01/20 23:59 23:59 23:59 23:59 Intake Total 710 660 840 930 Output Total 125 15 Balance 585 645 840 930 Meds/Results Medications: Active Medications Generic Name Dose Route Start Last Admin Trade Name Freq PRN Reason Stop Dose Admin Acetaminophen 650 mg 05/28/20 12:20 05/28/20 12:44 Tylenol Tablet PO 650 mg Q6H PRN Administration Mild Pain (1-5) Or Fever Acetaminophen 650 mg 05/30/20 12:45 06/01/20 12:35 Tylenol Tablet PO 650 mg Q6HR CHICHI Administration Hydrocodone Bitart/Acetaminophen 1 tab 05/28/20 12:20 05/31/20 16:56 [place] 5-325 Mg PO 1 tab Q6H PRN Administration Pain Rated 6-10 Atorvastatin Calcium 10 mg 05/27/20 09:00 06/01/20 08:59 Lipitor PO 10 mg DAILY CHICHI Administration Citalopram Hydrobromide 10 mg 05/27/20 09:00 06/01/20 08:59 Celexa PO 10 mg DAILY CHICHI Administration Dextrose 12.5 gm 05/26/20 14:29 Dextrose 50% Syringe IV PUSH PRN PRN Hypoglycemia Protocol Donepezil HCl 5 mg 05/26/20 21:00 05/31/20 22:13 Aricept PO 5 mg HS CHICHI Administrati
--- NOTE | 2020-06-01 16:24 | PM.IMPN ---
Progress Note: A&P Assessment and Plan (1) GI bleed: Qualifiers: GI bleed type/associated pathology: unspecified gastrointestinal hemorrhage type Qualified Code(s): K92.2 - Gastrointestinal hemorrhage, unspecified Code(s): K92.2 - Gastrointestinal hemorrhage, unspecified Status: Acute Assessment and Plan: Hgb 5.2 on admission. Anemia related to GI bleed and EGD showing a gastric mass felt to be the source. Appreciate GI input. Patient received 2 units of packed red blood cells. Protonix started and Plavix held. The stated that he was having dark stools. No plans for colonoscopy at this time. Hgb dropped slightly to 6.9 (05/28) so another unit ordered.(3 units total) Hgb climbed to 7.7 last 2 days (2) Acute blood loss anemia: Code(s): D62 - Acute posthemorrhagic anemia Status: Acute Assessment and Plan: Hemoglobin 5.2 on admission. Most likely related to a GI bleed from the gastric mass. Patient was transfused 2 units of packed red blood cells. Hemoglobin climbed to the 7 range but back down to 6.9 (05/28) so repeat transfusion ordered. Hgb 7.7 since. Will continue to monitor for stability and transfuse as needed. Iron studies consistent with iron deficiency to suggest this has been more longstanding. Continue iron. and give IV dose (3) Gastric mass: Code(s): K31.89 - Other diseases of stomach and duodenum Status: Acute Assessment and Plan: EGD showing a 4 cm gastric mass. Biopsies were taken. It appears neoplastic but pathology showing nonspecific acute gastritis with ulceration and necrotic tissue. CT A/P showing no acute findings. . Oncology is following. GI aware and will repeat EGD 06/02 (4) Right leg pain: Code(s): M79.604 - Pain in right leg Status: Acute Assessment and Plan: Exam is difficult. 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 No obvious bony abnormalities to suggest mets. CT of the lumbar spine also showing no acute findings to explain pain. . Therapy is working with the patient and he does seem to favor the right leg. Some of generalized weakness is related to the anemia. Ortho was consulted and arthrocentesis yesterday. No crystals. Abx started but discussed with ortho later and he felt okay to hold abx while we wait for cx results. He went ahead and injected the knee. (5) Dementia: Qualifiers: Dementia behavioral disturbance: with behavioral disturbance Dementia type: unspecified type Qualified Code(s): F03.91 - Unspecified dementia with behavioral disturbance Code(s): F03.90 - Unspecified dementia without behavioral disturbance Status: Acute Assessment and Plan: Dementia with behavioral disorder. Appears to get agitated mostly at night but calm now. Continue Namenda and Aricept. He was recently started on Celexa due to behavioral problems which was also continued. (6) BPH (benign prostatic hyperplasia): Code(s): N40.0 - Benign prostatic hyperplasia without lower urinary tract symptoms Status: Acute Assessment and Plan: Stable. Continue with tamsulosin. (7) HTN (hypertension), malignant: Code(s): I10 - Essential (primary) hypertension Status: Chronic Assessment and Plan: Patient's blood pressure was reviewed on 06/01. Blood pressure elevated at times. Advance Lisinopril. (8) History of CVA (cerebrovascular accident): Code(s): Z86.73 - Personal history of transient ischemic attack (TIA), and cerebral infarction without residual deficits Status: Acute Assessment and Plan: Plavix on hold due to blood loss anemia. Continue atorvastatin. (9) DM2 (diabetes mellitus, type 2): Code(s): E11.9 - Type 2 diabetes mellitus without complications Status: Chronic Assessment and Plan: The patient's blood glucose was reviewed on 05/31 Glucose
[2020-06-01 16:54] LABS: Glucose Point of Care 81 (65-105)
[2020-06-01] MEDS: IRON SUCROSE COMPLEX 400 MG in SODIUM CHLORIDE 0.9% IV 250 ML 108 MG IVPB (17:14)
[2020-06-01 20:00] VITALS: PULSE 60; RESP 14; O2SAT 100
[2020-06-01] MEDS: DONEPEZIL HCL 5 MG TABLET PO (20:00)
[2020-06-01 20:35] LABS: IFOB Positive Control Positive; Immunochemical Fecal Occult Bl Positive (N)
[2020-06-01 21:10] LABS: Glucose Point of Care 177 (65-105)
[2020-06-01 22:00] VITALS: BP 134/64; PULSE 67; RESP 20; TEMP 37.2; O2SAT 98
[2020-06-02 06:00] VITALS: BP 142/60; PULSE 70; RESP 21; TEMP 36.9; O2SAT 100
[2020-06-02 08:16] LABS: Hematocrit 26.2 % (42.0-52.0); Mean Corpuscular HGB Conc 30.5 g/dl (32-36); Mean Corpuscular Hemoglobin 25.1 pg (26-34); Mean Corpuscular Volume 82.1 fl (80-100); Mean Platelet Volume 9.7 fl (7.4-10.4); Platelet Count Result 333 k/mm3 (150-375); Red Blood Count 3.19 M/mm3 (4.6-6.20); Red Cell Distribution Width 18.1 % (11.5-14.5); White Blood Count 10.3 K/mm3 (4.5-10.0)
[2020-06-02] MEDS: PANTOPRAZOLE 40 MG TABLET PO (09:02)
[2020-06-02] MEDS: MEMANTINE 5 MG TABLET PO (09:02)
[2020-06-02] MEDS: ATORVASTATIN 10 MG TABLET PO (09:03)
[2020-06-02] MEDS: CITALOPRAM HYDROBROMIDE 10 MG TABLET PO (09:03)
[2020-06-02] MEDS: lisinopriL 20 MG TABLET PO (09:03)
[2020-06-02] MEDS: TAMSULOSIN HCL 0.4 MG CAPSULE PO (09:03)
[2020-06-02 09:17] LABS: Glucose Point of Care 110 (65-105)
[2020-06-02] MEDS: IRON SUCROSE COMPLEX 400 MG in SODIUM CHLORIDE 0.9% IV 250 ML 108 MG IVPB (10:34)
--- NOTE | 2020-06-02 10:43 | WPDANESEPPF ---
Anes - Initial Pre Proc Eval Procedure: Operation Date: 05/27/20 12:00 Proposed Procedures p Flexible Sigmoidoscopy - Bahman Tolentino MD s Esophagogastroduodenoscopy - Bahman Tolentino MD Operation Date: 06/02/20 12:00 Proposed Procedures p Esophagogastroduodenoscopy - Bahman Tolentino MD Date/Time: 06/02/20 10:43 Surgeon: Judy Becker MD Pre Op Diagnosis: weakness/anemia/GI bleed/dementia Patient Data Age: 80 Gender: M Height: 1.75 m Weight: 84.5 kg Last Vital Signs Temp 36.9 C 06/02/20 06:00 Pulse 70 06/02/20 06:00 Resp 21 H 06/02/20 06:00 BP 142/60 H 06/02/20 06:00 Pulse Ox 100 06/02/20 06:00 Allergies Allergy/AdvReac Type Severity Reaction Status Date / Time No Known Allergies Allergy Unverified 06/02/20 11:32 Home Medications Medication Instructions Recorded Confirmed Type atorvastatin 20 mg PO DAILY 05/26/20 05/26/20 History citalopram 10 mg PO DAILY 05/26/20 05/26/20 History clopidogrel 75 mg PO DAILY 05/26/20 05/26/20 History donepezil 10 mg PO HS 05/26/20 05/26/20 History glimepiride 4 mg PO QAM 05/26/20 05/26/20 History lisinopril 10 mg PO DAILY 05/26/20 05/26/20 History memantine 10 mg PO QAM 05/26/20 05/26/20 History metformin 500 mg PO BID 05/26/20 05/26/20 History tamsulosin 0.4 mg PO DAILY 05/26/20 05/26/20 History Laboratory Tests 05/31/20 06/01/20 06/01/20 17:47 11:43 16:46 WBC RBC Hgb Hct MCV MCH MCHC RDW Plt Count MPV POC Capillary Glucose 154 mg/dl H mg/dl 81 mg/dl mg/dl (65-105) (65-105) Stl Occult Blood (IFOB) SARS-CoV-2 RNA (RT-PCR) Negative 06/01/20 06/01/2006/02/20 19:35 21:07 08:05 WBC 10.3 K/mm3 H K/mm3 (4.5-10.0) RBC 3.19 M/mm3 L M/mm3 (4.6-6.20) Hgb 8.0 g/dL L g/dL (14.0-18.0) Hct 26.2 % L % (42.0-52.0) MCV 82.1 fl fl (80-100) MCH 25.1 pg L pg (26-34) MCHC 30.5 g/dl L g/dl (32-36) RDW 18.1 % H % (11.5-14.5) Plt Count 333 k/mm3 k/mm3 (150-375) MPV 9.7 fl fl (7.4-10.4) POC Capillary Glucose 177 mg/dl H mg/dl (65-105) Stl Occult Blood (IFOB) Positive H (N) SARS-CoV-2 RNA (RT-PCR) 06/02/20 09:08 WBC RBC Hgb Hct MCV MCH MCHC RDW Plt Count MPV POC Capillary Glucose 110 mg/dl mg/dl (65-105) Stl Occult Blood (IFOB) SARS-CoV-2 RNA (RT-PCR) Patient hx anesthesia problems: none Family hx anesthesia problems: none PMFSH Past Medical History Medical History BPH (benign prostatic hyperplasia) Dementia Diarrhea DM2 (diabetes mellitus, type 2) History of CVA (cerebrovascular accident) HTN (hypertension), malignant Hyperlipidemia Melena Symptomatic anemia Weakness Surgical History Surgical History No pertinent past surgical history Family History Family History Mother Cerebrovascular accident Father Acute myocardial infarction Social History Social History Social History: the patient lives with his and has 2 children. The states that he is a full code at this time. Patient used to smoke cigars open to the time that he had a stroke but then has not since then. Does not use any marijuana or illicit drugs. 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 Smoking status: Former smoker Tobacco type: cigars Alcohol intake: never Substance use: never Gender identity (if verbalized by the patient): Male Spiritual care concerns: No Anes - Eval Final Pre
[2020-06-02 11:25] VITALS: BP 150/68; PULSE 59; RESP 20; TEMP 37.2; O2SAT 96
[2020-06-02] MEDS: LACTATED RINGERS 1,000 ML 150 ML IV CONT (11:30)
[2020-06-02 11:43] LABS: Glucose Point of Care 105 (65-105)
[2020-06-02 12:09] VITALS: BP 117/48; PULSE 59; RESP 23; O2SAT 98
[2020-06-02 12:19] VITALS: BP 130/55; PULSE 56; RESP 20; O2SAT 98
[2020-06-02 12:29] VITALS: BP 132/61; PULSE 61; RESP 24; O2SAT 98
[2020-06-02 12:31] LABS: Glucose Point of Care 93 (65-105)
[2020-06-02 14:00] VITALS: BP 140/78; PULSE 60; RESP 14; TEMP 36.8; O2SAT 100
--- NOTE | 2020-06-02 18:21 | PM.DS ---
DS: Admitting Diagnosis Admitting Diagnosis Admitting Diagnosis: weakness/anemia/GI bleed/dementia DS: Discharge Diagnosis Discharge Diagnosis (1) GI bleed: Qualifiers: GI bleed type/associated pathology: unspecified gastrointestinal hemorrhage type Qualified Code(s): K92.2 - Gastrointestinal hemorrhage, unspecified Code(s): K92.2 - Gastrointestinal hemorrhage, unspecified Status: Acute Assessment and Plan: Hgb 5.2 on admission. Anemia related to GI bleed and EGD showing a gastric mass felt to be the source. . Patient received 2 units of packed red blood cells. Protonix started and Plavix held. The stated that he was having dark stools. Hgb dropped slightly to 6.9 (05/28) so another unit ordered.(3 units total) Hgb climbed to 7.7 last 2 days and stable at 8.0 day of discharge (2) Acute blood loss anemia: Code(s): D62 - Acute posthemorrhagic anemia Status: Acute Assessment and Plan: Hemoglobin 5.2 on admission. Most likely related to a GI bleed from the gastric mass. Patient was transfused 2 units of packed red blood cells. Hemoglobin climbed to the 7 range but back down to 6.9 (05/28) so repeat transfusion ordered. Hgb 7.7 since. Iron studies consistent with iron deficiency to suggest this has been more longstanding. 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 Biopsies were taken. It appears neoplastic but pathology showing nonspecific acute gastritis with ulceration and necrotic tissue. CT A/P showing no acute findings. . Oncology is following and patient will follow-up with oncology as outpatient repeat EGD with further biopsies performed the day of discharge (4) Right leg pain: Code(s): M79.604 - Pain in right leg Status: Acute Assessment and Plan: Exam is difficult. 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 No obvious bony abnormalities to suggest mets. CT of the lumbar spine also showing no acute findings to explain pain. . Therapy is working with the patient and he does seem to favor the right leg. Some of generalized weakness is related to the anemia. Ortho was consulted and arthrocentesis yesterday. No crystals. Abx started but discussed with ortho later and stopping cultures were negative. He went ahead and injected the knee. (5) Dementia: Qualifiers: Dementia behavioral disturbance: with behavioral disturbance Dementia type: unspecified type Qualified Code(s): F03.91 - Unspecified dementia with behavioral disturbance Code(s): F03.90 - Unspecified dementia without behavioral disturbance Status: Acute Assessment and Plan: Dementia with behavioral disorder. Appears to get agitated mostly at night but calm now. Continued Namenda and Aricept. He was recently started on Celexa due to behavioral problems which was also continued. (6) BPH (benign prostatic hyperplasia): Code(s): N40.0 - Benign prostatic hyperplasia without lower urinary tract symptoms Status: Acute Assessment and Plan: Stable. Continue with tamsulosin. (7) HTN (hypertension), malignant: Code(s): I10 - Essential (primary) hypertension Status: Chronic Assessment and Plan: Patient's blood pressure was reviewed on 06/02. Blood pressure elevated at times. continue Lisinopril. (8) History of CVA (cerebrovascular accident): Code(s): Z86.73 - Personal history of transient ischemic attack (TIA), and cerebral infarction without residual deficits Status: Acute Assessment and Plan: Plavix on hold due to blood loss anemia at discharge. Continue atorvastatin. (9) DM2 (diabetes mellitus, type 2): Code(s): E11.9 - Type 2 diabetes mellitus without complications
== END 2020-06-02 18:27 | disposition home health service (06) | DRG 375 ==
LOC: ANHED 10:41 → ANHIMU 14:30 → ANH2MED 05-28 01:41 → ANHIMU 06-03 15:36
PROVIDERS: Internal Medicine; Internal Medicine Gastroenterology; Internal Medicine Hematology & Oncology; Nurse Practitioner; Orthopaedic Surgery; Admitting Provider Family Medicine; Emergency Provider Emergency Medicine; Visit Provider Internal Medicine
PROC: 0DJ08ZZ Inspection of Upper Intestinal Tract, Via Natural or Artificial Opening Endoscopic (ICD-10-PCS; CPT 43235; 2020-05-27 12:00)
PROC: 0DJ08ZZ Inspection of Upper Intestinal Tract, Via Natural or Artificial Opening Endoscopic (ICD-10-PCS; CPT 43235; principal; 2020-06-02 12:00)
DX: C16.9 Malignant neoplasm of stomach, unspecified (principal); D62 Acute posthemorrhagic anemia; I69.351 Hemiplegia and hemiparesis following cerebral infarction affecting right dominant side; F03.91 Unspecified dementia, unspecified severity, with behavioral disturbance; K92.2 Gastrointestinal hemorrhage, unspecified; I69.320 Aphasia following cerebral infarction; Z20.828 Contact with and (suspected) exposure to other viral communicable diseases; N40.0 Benign prostatic hyperplasia without lower urinary tract symptoms; E11.9 Type 2 diabetes mellitus without complications; I10 Essential (primary) hypertension; M17.11 Unilateral primary osteoarthritis, right knee; M16.11 Unilateral primary osteoarthritis, right hip; M11.261 Other chondrocalcinosis, right knee; M11.251 Other chondrocalcinosis, right hip; E78.5 Hyperlipidemia, unspecified; Z87.891 Personal history of nicotine dependence
CPT/HCPCS: 20611; 36415; 36430; 70450; 71045; 72132; 72192; 73502; 73560; 73700; 74177; 80048; 80053; 81001; 82274; 82607; 82728; 83036; 83540; 83550; 83735; 83880; 84100; 84443; 84484; 84550; 85014; 85018; 85025; 85027; 85610; 86850; 86900; 86901; 86923; 87070; 87075; 87205; 87635; 88108; 88304; 88305; 88312; 88342; 89051; 89060; 93005; 96360; 96361; 97110; 97116; 97161; 97165; 97530; 99285; A9270; C9113; C9803; J0696; J1756; J1815; J2060; J2704; J3370; J7030; J7050; J7120; P9016; Q9967; U0003

== ENCOUNTER 2020-06-22 10:54 | Outpatient (CLI) | payer MEDICARE, SELFPAY ==
[2020-06-22 11:19] LABS: Basophils Percent Auto 0.2 % (0.2-1.2); Eosinophils Absolute Auto 0.1 K/mm3 (0-0.3); Eosinophils Percent Auto 0.4 % (0-4.4); Hematocrit 32.8 % (42.0-52.0); Hemoglobin 9.8 g/dL (14.0-18.0); Immature Granulocyte Absolute 0.08 K/mm3 (0.00-0.031); Immature Granulocyte Percent A 0.5 % (0-0.5); Lymphocytes Absolute Auto 1.06 K/mm3 (0.9-3.2); Lymphocytes Percent Auto 6.1 % (18.3-44.2); Mean Corpuscular HGB Conc 29.9 g/dl (32-36); Mean Corpuscular Hemoglobin 24.7 pg (26-34); Mean Corpuscular Volume 82.8 fl (80-100); Mean Platelet Volume 10.1 fl (7.4-10.4); Monocytes Absolute Auto 1.4 K/mm3 (0.1-0.6); Neutrophils Absolute Auto 14.9 K/mm3 (1.3-6.7); Neutrophils Percent Auto 84.8 % (45.5-73.1); Platelet Count Result 336 k/mm3 (150-375); Red Blood Count 3.96 M/mm3 (4.6-6.20); Red Cell Distribution Width 21.2 % (11.5-14.5); White Blood Count 17.5 K/mm3 (4.5-10.0)
[2020-06-22 11:24] LABS: Platelet Estimate Adequate (Adequate)
[2020-06-22 11:25] LABS: Hypochromasia 1+ (NORMAL); Ovalocytes 1+ (NORMAL); Poikilocytosis 1+ (NORMAL)
[2020-06-22 13:33] LABS: Alanine Aminotransferase 30 U/L (4-50); Albumin Level 3.6 g/dL (3.5-5.1); Alkaline Phosphatase 142 U/L (38-126); Anion Gap 13 mmol/L (8-16); Aspartate Amino Transferase 35 U/L (17-59); Bilirubin,Total 0.6 mg/dL (0.2-1.3); Blood Urea Nitrogen 29 mg/dL (9-20); Calcium 9.2 mg/dL (8.4-10.2); Carbon Dioxide 23 mmol/L (22-30); Chloride 104 mmol/L (98-107); Estimated Glomerular Filt Rate 53; Glucose 222 mg/dL (75-110); Potassium 4.3 mmol/L (3.4-5.0); Sodium 140 mmol/L (137-145)
[2020-06-22 13:56] LABS: Iron 22 ug/dL (49-181)
[2020-06-22 14:05] LABS: Percent Iron Saturation 8 % (20-50)
== END 2020-06-22 10:55 | disposition home or self-care (01) ==
PROVIDERS: Visit Provider Internal Medicine Hematology & Oncology
DX: C16.2 Malignant neoplasm of body of stomach (principal); D64.9 Anemia, unspecified
CPT/HCPCS: 36415; 80053; 82607; 82728; 83540; 83550; 85025

== ENCOUNTER 2020-06-24 12:37 | Outpatient (CLI) | payer MEDICARE, SELFPAY ==
--- NOTE | ~2020-06-24 | PE_ITS ---
EXAMINATION: PET skull to mid thigh DATE: 06/24/2020 15:08 INDICATION: Stomach cancer TECHNIQUE: Blood glucose level was 184 mg/dL. 9.013 mCi of 18-fluorodeoxyglucose (18-FDG) was adminis tered i.v. Low dose computed tomography (CT) images were acquired from the base of the brain to the p roximal thighs for attenuation correction and anatomic localization. Positron emission tomography (PE T) images were acquired in the same distribution beginning 67 minutes after injection. Images includi ng fused PET/CT images were reconstructed in axial, coronal, and sagittal planes. Automated exposure control technique was employed. The dose-length product was 692.86mGy-cm. COMPARISON: None FINDINGS: Head/neck: There is symmetric increased activity at the nares and in the oral cavity, laryngeal muscles and post erior cervical paraspinal musculature without CT correlate, likely physiologic. Atherosclerotic calci fications at the bilateral carotid bulbs. No pathologically enlarged cervical lymphadenopathy or susp icious foci of increased FDG uptake in the visualized head or neck. Chest: Respiratory motion in the lungs. Mild discoid atelectasis at the lingula without associated FDG uptak e. Calcified nodules in the left lower lobe and calcified left hilar and mediastinal lymph nodes cons istent with old granulomatous disease. Cardiomegaly. Atherosclerotic coronary artery calcifications a nd likely coronary artery stenting. No pericardial effusion. Thoracic aorta is normal in caliber. No pathologically enlarged or FDG avid thoracic lymphadenopathy. Abdomen/pelvis/proximal thighs: There is circumferential wall thickening at the costophrenic fundus with increased FDG uptake with ma ximal SUV of 6.8 which likely represents a location of the reported stomach cancer. There is a poorly defined low-attenuation FDG avid lesion in the liver along side the inferior vena cava with maximal SUV of 5.2 measuring approximately 2-2.5 cm in maximal diameter. There is a second subtle small focus of relatively increased FDG uptake in segment 2 of the liver with maximal SUV of 3.6. No definitive correlate on the CT images likely due to its small size which is likely on the order of 1 cm. Physiol ogic renal accumulation and excretion of FDG activity in the kidneys, bladder and along portions of u reters. The gallbladder, pancreas, spleen and bilateral adrenal glands are normal. Mild to moderate u ptake scattered throughout the bowels without radiologic correlate, also likely physiologic. Prostato megaly. No pathologically enlarged or FDG avid lymphadenopathy in the abdomen, pelvis or proximal thi ghs. Musculoskeletal: There are bridging osteophytes at multiple levels in the spine, consistent with diffuse idiopathic sk eletal hyperostosis (DISH). No suspicious lytic, blastic or FDG avid bone lesions. IMPRESSION: 1. Wall thickening with increased FDG uptake at the fundus of the stomach likely representing the sit e of the reported gastric cancer. 2. A couple FDG avid hepatic lesions concerning for metastatic disease, the larger measuring 2-2.5 cm in the right hepatic lobe. No other lesions suspicious for metastatic disease in the neck, chest, ab domen or pelvis. Reviewed, dictated and finalized at location A. IMPRESSION: 1. Wall thickening with increased FDG uptake at the fundus of the stomach likel y representing the site of the reported gastric cancer. 2. A couple FDG avid hepatic lesions concerning for metastatic disease, the lar ted measuring 2-2.5 cm in the right hepatic lobe. No other lesions suspicious f or metastatic disease in the neck, chest, abdomen or pelvis.
[2020-06-24 13:25] LABS: Glucose Point of Care 184 (65-105)
== END 2020-06-24 12:38 | disposition home or self-care (01) ==
LOC: ANHIMG 12:40
PROVIDERS: Visit Provider Internal Medicine Hematology & Oncology
DX: C16.1 Malignant neoplasm of fundus of stomach (principal); K76.9 Liver disease, unspecified
CPT/HCPCS: 78815; A9552

== ENCOUNTER 2020-06-25 20:06 | Observation (INO) | payer MEDICARE, SELFPAY ==
--- NOTE | ~2020-06-25 | XR_ITS ---
EXAMINATION: XR chest 1V portable DATE: 06/25/2020 21:11 INDICATION: Shortness of breath and cough. TECHNIQUE: A single frontal view of the chest was obtained. COMPARISON: Chest single view 05/26/2020, chest CT 06/24/2020 FINDINGS: The chest demonstrates clear lungs without pneumonia, pleural effusion, or pneumothorax. Th e heart size is normal. IMPRESSION: 1. No acute cardiopulmonary disease. Reviewed, dictated and finalized at location A.
--- NOTE | ~2020-06-25 | CT_ITS ---
EXAMINATION: CT brain wo con DATE: 06/26/2020 13:37 INDICATION: Dysarthria. Weakness. TECHNIQUE: Computed tomography (CT) of the head was performed without intravenous contrast. The mA wa s adjusted according to patient size. Iterative reconstruction technique was employed. Exam dose: 60 5.33 mGy-cm total exam DLP. COMPARISON: 05/26/[address] head FINDINGS: There is very prominent bilateral vertebral artery as well as some basilar artery and very prominent bilateral carotid siphon and supraclinoid internal carotid artery calcification. There is n onspecific diminished attenuation of the subcortical and periventricular cerebral white matter, likel y due to chronic small vessel ischemic changes. Chronic left thalamic and left marlena lacunar infarcts. There is prominent cerebellar as well as moderately prominent cerebral atrophy. No intracranial mass lesion or hemorrhage or recent cerebrovascular accident, midline shift or mass e ffect is detected. No subdural or epidural hematoma is detected. No fracture or bone destruction is detected. The mastoid air cells and paranasal sinuses are essentia lly unremarkable. IMPRESSION: No acute intracranial finding or significant change since 05/26/2020 Reviewed, dictated and finalized at Location A. Reviewed, dictated and finalized at location A.
--- NOTE | ~2020-06-25 | CT_ITS ---
EXAMINATION: CT abdomen pelvis wo con DATE: 06/26/2020 00:59 INDICATION: Epigastric abdominal pain. Gastric cancer. TECHNIQUE: Computed tomography (CT) of the abdomen and pelvis was performed without intravenous contr ast. Automated exposure control and iterative reconstruction technique were employed. Exam dose: 863 .95 mGy-cm total exam DLP. COMPARISON: 06/24/2020 PET scan FINDINGS: There is mild discoid atelectasis or scarring at the left lung base. Cardiomegaly. No pericardial or pleural effusion. The liver, gallbladder, bile ducts, pancreas, pancreatic duct and spleen are unremarkable on this caraballo ited noncontrast examination. Normal morphology of the adrenal glands. No renal mass lesion is evident on this limited noncontrast examination. No urinary tract calculus or hydroureteronephrosis. There is prominent prostate enlargement and moderate diffuse thickening of the urinary bladder wall. There is atherosclerotic calcification of the abdominal aorta and branches including celiac, superior mesenteric, renal and inferior mesenteric arteries as well as iliac and femoral arteries. No abdomin al aortic aneurysm. No intraperitoneal or retroperitoneal or pelvic mass lesion or adenopathy or ascites. There is thickening of the wall of the gastric fundus upper body of the stomach which may correspond with the reported gastric cancer.. There is diverticulosis of the colon; no CT evidence of diverticulitis. No bowel obstruction, bowel w all thickening, pneumatosis or intraperitoneal free air is detected. There are old posterior 10th through 12th healed left rib fractures. Diffuse idiopathic skeletal hyperostosis of the thoracic and lumbar spine. IMPRESSION: Cardiomegaly Prostate enlargement Thickening of the wall of the gastric fundus and upper body of stomach, which may be secondary to the reported gastric cancer Diverticulosis of the colon Reviewed, dictated and finalized at Location A. Reviewed, dictated and finalized at location A. IMPRESSION: Cardiomegaly Prostate enlargement Thickening of the wall of the gastric fundus and upper body of stomach, which m ay be secondary to the reported gastric cancer Diverticulosis of the colon
[2020-06-25 20:13] VITALS: BP 154/73; PULSE 71; RESP 19; TEMP 36.6; O2SAT 95
--- NOTE | 2020-06-25 20:14 | ED.GENADULT ---
HPI - General Adult General Chief complaint: Unspecified Stated complaint: failure to thrive Time Seen by Provider: 06/25/20 20:13 Source: family Mode of arrival: EMS Limitations: clinical condition History of Present Illness HPI narrative: 80-year-old man Recently was discharged about 3 weeks ago At that time had a GI bleed and had an upper endoscopy that revealed a lesion whose gross appearance was of malignancy It was actually biopsied twice on separate endoscopies and some cells consistent with adenocarcinoma were found on the second biopsy He has not had any treatment for this He has been generally weak since he went home but this morning he was very weak while attempting to bathe and EMS had to be summoned to the house to get him back into bed His blood pressure was reportedly low then, systolic in the 70s, but he did not want him brought to the hospital at that time Although his blood pressure is now basically normal, he did not gain strength during the day and just stayed in bed prompting mohsen's journey to the ED His daughter is here with him, she thinks that if his labs and work-up check out as mostly unchanged from when he was discharged that she would be able to care for him at home Onset (ago): day(s) Severity: severe Related Data Home Medications Medication Instructions Recorded Confirmed atorvastatin 20 mg PO DAILY 05/26/20 06/26/20 citalopram 10 mg PO DAILY 05/26/20 06/26/20 donepezil 10 mg PO HS 05/26/20 06/26/20 glimepiride 4 mg PO QAM 05/26/20 06/26/20 lisinopril 10 mg PO DAILY 05/26/20 06/26/20 memantine 10 mg PO QAM 05/26/20 06/26/20 tamsulosin 0.4 mg PO DAILY 05/26/20 06/26/20 metformin 500 mg PO BID 06/26/20 06/26/20 Allergies Allergy/AdvReac Type Severity Reaction Status Date / Time No Known Allergies Allergy Unverified 06/02/20 11:32 Review of Systems Review of Systems: ROS unobtainable: Yes unobtainable due to medical condition Constitutional: Constitutional: Denies fever(s) and Reports weakness Respiratory: Respiratory: Denies cough Gastrointestinal: Gastrointestinal: Denies diarrhea and Denies vomiting Comments: No melena Neurologic: Reports weakness PMFSH Past Medical History Medical History Benign essential HTN BPH (benign prostatic hyperplasia) Dementia Diarrhea DM2 (diabetes mellitus, type 2) Gastric cancer History of CVA (cerebrovascular accident) Hyperlipidemia Melena Symptomatic anemia Weakness Surgical History Surgical History No pertinent past surgical history Family History Family History Mother Cerebrovascular accident Father Acute myocardial infarction Social History Social History (Updated 06/26/20 @ 08:41 by Rajeev La MD) Social History: the patient lives with his and has 2 children. He is a full code. Patient used to smoke cigars. Does not use any marijuana or illicit drugs. 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 Smoking status: Former smoker Tobacco type: cigars Alcohol intake: never Substance use: never Gender identity (if verbalized by the patient): Male Spiritual care concerns: No Exam Const: General: confusion and ill appearing Nutritional Appearance: thin Other: Frail and elderly HENMT: Mouth: Yes dry mucous membranes Eyes: Conjunctivae: conjunctivae normal Resp: Effort & Inspection: normal respiratory effort Auscultation: clear to auscultation bilaterally, no rales, no rhonchi and no wheezes Cardio: Rate: regular rate Rhythm: regular rhythm GI: GI Palp: Yes Soft to palpation, No Tenderness to palpation present (GI) and No Guarding due to palpation present (GI) Skin: General skin exam: pallor Neuro: General: moves all extremities Other: Strength seems to be bilaterally symmetric however his effort is poor
[2020-06-25 20:21] VITALS: PULSE 77
[2020-06-25 22:01] LABS: Alanine Aminotransferase 33 U/L (4-50); Albumin Level 3.4 g/dL (3.5-5.1); Alkaline Phosphatase 136 U/L (38-126); Anion Gap 7 mmol/L (8-16); Aspartate Amino Transferase 30 U/L (17-59); Bilirubin,Total 0.5 mg/dL (0.2-1.3); Blood Urea Nitrogen 38 mg/dL (9-20); Calcium 9.2 mg/dL (8.4-10.2); Carbon Dioxide 26 mmol/L (22-30); Chloride 106 mmol/L (98-107); Estimated CRCL calculation 48 ml/min; Estimated Glomerular Filt Rate > 60; Glucose 119 mg/dL (75-110); Lipase 26 U/L (23-300); Magnesium 1.9 mg/dL (1.6-2.3); Potassium 3.7 mmol/L (3.4-5.0); Sodium 139 mmol/L (137-145)
[2020-06-25 22:07] LABS: Iron 27 ug/dL (49-181)
[2020-06-25 22:16] LABS: Percent Iron Saturation 10 % (20-50)
[2020-06-25 22:30] VITALS: RESP 18; O2SAT 96
[2020-06-25 23:14] LABS: Basophils Percent Auto 0.2 % (0.2-1.2); Eosinophils Absolute Auto 0.1 K/mm3 (0-0.3); Eosinophils Percent Auto 0.6 % (0-4.4); Hemoglobin 9.4 g/dL (14.0-18.0); Immature Granulocyte Absolute 0.11 K/mm3 (0.00-0.031); Immature Granulocyte Percent A 0.6 % (0-0.5); Lymphocytes Absolute Auto 1.34 K/mm3 (0.9-3.2); Lymphocytes Percent Auto 7.8 % (18.3-44.2); Mean Corpuscular HGB Conc 30.3 g/dl (32-36); Mean Corpuscular Hemoglobin 24.9 pg (26-34); Mean Platelet Volume 10.7 fl (7.4-10.4); Monocytes Absolute Auto 1.5 K/mm3 (0.1-0.6); Monocytes Percent Auto 8.6 % (2.6-8.5); Neutrophils Absolute Auto 14.2 K/mm3 (1.3-6.7); Neutrophils Percent Auto 82.2 % (45.5-73.1); Platelet Count Result 296 k/mm3 (150-375); Red Blood Count 3.78 M/mm3 (4.6-6.20); Red Cell Distribution Width 20.9 % (11.5-14.5); White Blood Count 17.2 K/mm3 (4.5-10.0)
[2020-06-25 23:15] VITALS: BP 127/79; O2SAT 96
--- NOTE | 2020-06-25 23:22 | PC.NURSE ---
When trying to assess Pt, he shouted for his mother, yelled at staff, and was not cooperative. Pt is hard to understand when answering questions. Pt only follows commands for a very limited time. is at bedside at the moment.
[2020-06-26] VITALS (7 sets, daily range): BP systolic 110–144; BP diastolic 55–76; PULSE 67–75; RESP 14–18; TEMP 36.4–36.8; O2SAT 96–100; BMI 26.5
[2020-06-26] MEDS: LACTATED RINGERS 1,000 ML 999 ML IV CONT (01:15)
--- NOTE | 2020-06-26 02:30 | PC.NURSE ---
PATIENT AND INFORMED THAT BEFORE ANY DECISIONS CAN BE MADE WE NEED URINE AND A BLOOD TEST BACK. I WAS INFORMED PRIOR TO TALKING TO THE PATIENT BY RODRIGO QUINTANA THAT THE PATIENT DOES NOT WISH FOR HER TO BE STRAIGHT CATH. I EXPLAINED THAT WE COULD USE SOME LIDOCAINE TO HELP WITH THE PAIN. AGREED. JUST CONCERNED BECAUSE HE IS VERY SENSITIVE DOWN THERE . I EXPLAINED THAT SINCE THE PATIENT IS NOT URINATING A LOT AT HOME THAT THE DOCTOR REALLY NEEDS THE URINE. AGREED TO PROCEDURE.
[2020-06-26] MEDS: LIDOCAINE HCL 2% GEL UROJET 10 ML PKG (02:57)
[2020-06-26 03:27] LABS: Lactic Acid Reflex 1.6 mmol/L (0.7-2.1)
[2020-06-26 03:32] LABS: Add Urine Microscopic? YES; Appearance Urine Cloudy (Clear); Bacteria Urine Trace /hpf; Bilirubin Urine Negative (Negative); Blood Urine 2+ (Negative); Color Urine Yellow (Yellow); Glucose Urine UA Negative (Negative); Ketones Urine Trace mg/dL (Negative); Leukocyte Esterase Ur 2+ LEU/UL (Negative); Nitrate Urine Negative (Negative); Protein Urine Negative (Negative); Uric Acid Crystals Urine Present /hpf; Urobilinogen Urine Negative mg/dL (<2.0); WBC Urine 31-50 /hpf
[2020-06-26] MEDS: SODIUM CHLORIDE 0.9% IV 1,000 ML 125 ML IV CONT ×2 (05:39→17:23)
--- NOTE | 2020-06-26 05:40 | ADMGEN ---
This patient, Marek Carrasco, was admitted to Medical Room [facility] on 06/26/2020 @ 0144. Patient/family oriented to hospital policies and general routines including ID bracelet, bed and alarms, visiting hours, pain management, procedures, bathroom and other care routines, personal items, smoking policy, room service/diet, and visiting hours. Valuables list has been completed. Information on how to activate the Rapid Response Team has been discussed. Patient/Family are encouraged to report perceived risks to care and to ask questions if they do not understand what they are told or what they should do.
--- NOTE | 2020-06-26 08:07 | PM.IMHP ---
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 Patient is alert but confused due to his dementia. Thus a majority of the history obtained from the chart. Patient has not been able to start treatment for his cancer but was able to get PET scan on 06/24. PET scan showed increased uptake at the fundus of the stomach likely representing the site of the reported gastric cancer and a couple FDG avid hepatic lesions concerning for metastatic disease, the larger measuring 2-2.5 cm in the right hepatic lobe. He has been very weak since his discharge on 06/02. Was able to walk with walker. Right leg pain much better wfter injection. has noticed patient not eating much. RN once per week and Therapist 2x/week. Patient was up walking with walker with therapy. No fever, chills, SOB, cough, chest ain. Has complaining of neck and shoulder pain. On the morning of admission, patient was more weak then usual and EMS called to help the patient back to bed. At that time, SBP was reported to be in the 70/40 but family refused transport at that time. His weakness persisted and remained in bed all day. Due to the persistent weakness, EMS was called again. On EMS arrival, vital signs normal and glucose 103. Patient was brought to the ED. In the ED, vital signs again noted to be normal. CXR clear. CT A/P showing no acute findings. WBC 17K which is unchanged from 06/22 labs. Hgb 9.4. BUN 38 and Cr 1.1. He was started on IV fluids and given Zosyn x1 then Rocephin. He was admitted for further care. Review of Systems Review of Systems: ROS unobtainable: Yes unobtainable due to mental status PMFSH Past Medical History Medical History Benign essential HTN BPH (benign prostatic hyperplasia) Dementia Diarrhea DM2 (diabetes mellitus, type 2) Gastric cancer History of CVA (cerebrovascular accident) Hyperlipidemia Melena Symptomatic anemia Weakness Surgical History Surgical History No pertinent past surgical history Family History Family History Mother Cerebrovascular accident Father Acute myocardial infarction Social History Social History (Updated 06/26/20 @ 08:41 by Rajeev La MD) Social History: the patient lives with his and has 2 children. He is a full code. Patient used to smoke cigars. Does not use any marijuana or illicit drugs. 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 Smoking status: Former smoker Tobacco type: cigars Alcohol intake: never Substance use: never Gender identity (if verbalized by the patient): Male Spiritual care concerns: No Meds Home Medications and Allergies Home Medications Medication Instructions Recorded Confirmed Type atorvastatin 20 mg PO DAILY 05/26/20 06/26/20 History citalopram 10 mg PO DAILY 05/26/20 06/26/20 History donepezil 10 mg PO HS 05/26/20 06/26/20 History glimepiride 4 mg PO QAM 05/26/20 06/26/20 History lisinopril 10 mg PO DAILY 05/26/20 06/26/20 History memantine 10 mg PO QAM 05/26/20 06/26/20 History tamsulosin 0.4 mg PO DAILY 05/26/20 06/26/20 History pantoprazole 40 mg PO Q12HR #60 tablet 06/02/20 06/26/20 Rx C,E,zinc,copper [id number] 1 cap PO HS 06/26/20 06/26/20 History [Ocuvite Adult 50 Plus] cyanocobalamin (vitamin B-12) 5,000 mcg PO BID 06/26/20 06/26/20 History metformin 500 mg PO BID 06/26/20 06/26/20 History Allergies Allergy/AdvReac Type Severity Reaction Status Date / Time No Known Allergies Allergy Unverified 06/02/20 11:32 Vital Signs Vital Signs - 24 hr 06/25/20 20:13 06/25/20 20:21 06/25/20 22:30 Laura
[2020-06-26] MEDS: ACETAMINOPHEN 325 MG TABLET 650 MG PO (11:48)
[2020-06-26 11:59] LABS: Glucose Point of Care 141 (65-105)
--- NOTE | 2020-06-26 13:17 | PCSTNOTE ---
Bedside swallow evaluation completed. Please see ST evaluation for details and recommendations.
--- NOTE | 2020-06-26 14:48 | PCPTNOTE ---
PT/OT orders received....patient was incontinent of bowel, therapy assisted PAN PULLER's with hygine...length and fatiguing process for the patient...will defer his eval until tomorrow as appropriate
--- NOTE | 2020-06-26 14:49 | PCOTNOTE ---
Eval attempted/started on 06/26; pt had a BM. OT helped nursing with hygiene; pt became agitated and unable to complete eval. Will attempt tomorrow.
[2020-06-26 17:04] LABS: Glucose Point of Care 267 (65-105)
[2020-06-26] MEDS: FERROUS SULFATE 324 MG TABLET PO (17:20)
[2020-06-26] MEDS: INSULIN ASPART (*BKC) 100 UNITS/ML SUB-Q (17:25)
[2020-06-26 21:14] LABS: Glucose Point of Care 223 (65-105)
[2020-06-27 05:21] LABS: Basophils Percent Auto 0.2 % (0.2-1.2); Eosinophils Absolute Auto 0.2 K/mm3 (0-0.3); Eosinophils Percent Auto 1.9 % (0-4.4); Hematocrit 29.1 % (42.0-52.0); Hemoglobin 8.8 g/dL (14.0-18.0); Immature Granulocyte Absolute 0.07 K/mm3 (0.00-0.031); Immature Granulocyte Percent A 0.6 % (0-0.5); Lymphocytes Absolute Auto 1.17 K/mm3 (0.9-3.2); Lymphocytes Percent Auto 10.3 % (18.3-44.2); Mean Corpuscular HGB Conc 30.2 g/dl (32-36); Mean Corpuscular Hemoglobin 24.6 pg (26-34); Mean Corpuscular Volume 81.3 fl (80-100); Monocytes Absolute Auto 0.9 K/mm3 (0.1-0.6); Monocytes Percent Auto 8.2 % (2.6-8.5); Neutrophils Percent Auto 78.8 % (45.5-73.1); Platelet Count Result 274 k/mm3 (150-375); Red Blood Count 3.58 M/mm3 (4.6-6.20); Red Cell Distribution Width 20.7 % (11.5-14.5); White Blood Count 11.4 K/mm3 (4.5-10.0)
[2020-06-27 05:59] LABS: Alanine Aminotransferase 27 U/L (4-50); Alkaline Phosphatase 116 U/L (38-126); Anion Gap 5 mmol/L (8-16); Aspartate Amino Transferase 26 U/L (17-59); Bilirubin,Total 0.3 mg/dL (0.2-1.3); Blood Urea Nitrogen 23 mg/dL (9-20); CRP 14.5 mg/dL (<1.0); Calcium 8.8 mg/dL (8.4-10.2); Carbon Dioxide 26 mmol/L (22-30); Chloride 110 mmol/L (98-107); Estimated CRCL calculation 65 ml/min; Estimated Glomerular Filt Rate > 60; Glucose 151 mg/dL (75-110); Potassium 3.6 mmol/L (3.4-5.0); Sodium 141 mmol/L (137-145)
[2020-06-27 06:00] VITALS: BP 139/63; PULSE 68; RESP 18; TEMP 36.7; O2SAT 97
--- NOTE | 2020-06-27 09:59 | PCPTNOTE ---
PT/OT attempted to see this patient this morning...patient adamantly refused...suggested that he might kick my ass ...will try later, possibly when his is here visiting
--- NOTE | 2020-06-27 09:59 | PCOTNOTE ---
Attempted OT evaluation 9:45; pt was very agitated and refused therapy. Will try to attempt later when his is present.
--- NOTE | 2020-06-27 10:05 | PM.IMPN ---
Progress Note: A&P Assessment and Plan (1) Weakness: Code(s): R53.1 - Weakness Status: Acute Assessment and Plan: Patient was doing well with home therapy with walking with a walker up until 1-2 days prior to admission. No obvious signs or symptoms of infection. CT A/P shownig nothing acute; CXR clear; UCx negative. TSH normal. CT brain showing no acute findings. Weakness could be related to poor oral intake. ST felt patient could swallow safely. PT/OT to evaluate. Continue supplements. Increase activity. Discussed with . Okay for discharge if able to walk. (2) JAYLENE (acute kidney injury): Code(s): N17.9 - Acute kidney failure, unspecified Status: Acute Assessment and Plan: Present on admission with Cr 1.1 and CrCl 48. Better with IV fluids. Related to the poor oral intake. Stop IV fluids. He is eating intermittently. (3) Anemia: Code(s): D64.9 - Anemia, unspecified Status: Acute Assessment and Plan: Hgb low at 9.4 but better since last discharge. Iron studies more consistent with anemia of disease. Recent B12 normal. He probably has underlying minor acute blood loss from the gastric mass as well. Repeat Hgb 8.8 but not unexpected with IV fluids. Continue Protonix and iron. (4) Leukocytosis: Code(s): D72.829 - Elevated white blood cell count, unspecified Status: Acute Assessment and Plan: White count was essentially normal at the time of discharge but has been climbing since that time and currently at 17,200. No clear evidence of infection with a clear chest x-ray, normal CT A/P and negative UCx. Blood cultures pending. He is off all abx. Could be related to his cancer. Rocephin was started from the ED but this was stopped. CRP 14 but WBC better at 11K. Contineu to follow. BCx NGTD. (5) Gastric cancer: Code(s): C16.9 - Malignant neoplasm of stomach, unspecified Status: Acute Assessment and Plan: Patient with adenocarcinoma of the stomach. PET scan shows increased uptake in the stomach as well as liver concerning for metastatic disease. Personally notified Dr. Thurman about the admission. (6) DM2 (diabetes mellitus, type 2): Code(s): E11.9 - Type 2 diabetes mellitus without complications Status: Chronic Assessment and Plan: A1c was 6.1 last admission. Glucose reviewed on 06/27 Glucose into the 200's at times. Patient on Amaryl and metformin at home. Metformin can cause GI symptoms. Will hold these for now. Continue AccuCheks covering with sliding scale. Hypoglycemia protocol available as needed. (7) History of CVA (cerebrovascular accident): Code(s): Z86.73 - Personal history of transient ischemic attack (TIA), and cerebral infarction without residual deficits Status: Acute Assessment and Plan: Brain CT on 05/26/2020 showing old lacunar infarcts in the bilateral thalami and left side of the marlena. There is also evidence of chronic small-vessel ischemic disease. As above. Will repeat CT scan. Will hold atorvastatin given his weakness. He is currently not on anti-platelet therapy due to the known bleeding gastric mass. (8) Benign essential HTN: Code(s): I10 - Essential (primary) hypertension Status: Acute Assessment and Plan: Patient was hypotensive earlier on the day of admission. Blood pressure was stable on admission to the emergency room here and has been stable since that time. Etiology unclear but could be related to medications or infection or dehydration or combination. Will continue to hold his lisinopril. Continue to monitor. (9) BPH (benign prostatic hyperplasia): Code(s): N40.0 - Benign prostatic hyperplasia without lower urinary tract symptoms Status: Acute Assessment and Plan: Stable. Bladder does not feel distended. Continue tamsulosin. Would hold this if blood pressure becomes soft.
[2020-06-27] MEDS: TAMSULOSIN HCL 0.4 MG CAPSULE PO (11:02)
[2020-06-27] MEDS: MEMANTINE 10 MG TABLET PO (11:02)
[2020-06-27] MEDS: FERROUS SULFATE 324 MG TABLET PO ×2 (11:02→17:31)
[2020-06-27] MEDS: CITALOPRAM HYDROBROMIDE 10 MG TABLET PO (11:02)
[2020-06-27] MEDS: CYANOCOBALAMIN 1,000 MCG TABLET 5000 MCG PO ×2 (11:12→17:31)
[2020-06-27] MEDS: PANTOPRAZOLE 40 MG TABLET PO (11:13)
[2020-06-27 12:37] LABS: Glucose Point of Care 184 (65-105)
[2020-06-27 14:00] VITALS: BP 133/76; PULSE 80; RESP 18; TEMP 36.8; O2SAT 100
[2020-06-27 17:41] LABS: Glucose Point of Care 214 (65-105)
[2020-06-27] MEDS: INSULIN ASPART (*BKC) 100 UNITS/ML SUB-Q (17:43)
[2020-06-27 21:52] VITALS: BP 154/79; PULSE 75; RESP 16; TEMP 36.4; O2SAT 100
[2020-06-27 22:17] LABS: Glucose Point of Care 171 (65-105)
[2020-06-27] MEDS: PANTOPRAZOLE SODIUM IV 40 MG VIAL IV PUSH (22:34)
[2020-06-28 06:00] VITALS: BP 146/84; PULSE 83; RESP 18; TEMP 36.5; O2SAT 95
[2020-06-28 10:26] LABS: Glucose Point of Care 140 (65-105)
[2020-06-28] MEDS: MEMANTINE 10 MG TABLET PO (10:37)
[2020-06-28] MEDS: FERROUS SULFATE 324 MG TABLET PO ×2 (10:37→16:49)
[2020-06-28] MEDS: CITALOPRAM HYDROBROMIDE 10 MG TABLET PO (10:37)
[2020-06-28] MEDS: CYANOCOBALAMIN 1,000 MCG TABLET 5000 MCG PO ×2 (10:38→16:49)
[2020-06-28] MEDS: PANTOPRAZOLE 40 MG TABLET PO (10:38)
[2020-06-28] MEDS: TAMSULOSIN HCL 0.4 MG CAPSULE PO (10:38)
[2020-06-28] MEDS: ACETAMINOPHEN 325 MG TABLET 650 MG PO (10:47)
--- NOTE | 2020-06-28 11:05 | ECG_ITS ---
Measurements Intervals [place] Rate: 88 P: 101 MD: 153 QRS: 15 QRSD: 95 T: 44 QT: 384 QTc: 467 Interpretive Statements SINUS RHYTHM ATRIAL AND FREQUENT VENTRICULAR PREMATURE COMPLEXES BORDERLINE ST ABNORMALITY- ANTEROLATERAL LEADS ABNORMAL ECG Electronically Signed On 06-28-2020 11:33:52 CDT by Nick Maya D.O.
--- NOTE | 2020-06-28 11:15 | PCPTNOTE ---
Per ISHMAEL Luevano, PT was not attempted due to patient being irritated and angry. Will continue per Plan of Care frequency and duration.
[2020-06-28 11:52] LABS: Glucose Point of Care 224 (65-105)
[2020-06-28] MEDS: INSULIN ASPART (*BKC) 100 UNITS/ML SUB-Q ×2 (11:55→16:50)
--- NOTE | 2020-06-28 12:21 | PM.DS ---
DS: Admitting Diagnosis Admitting Diagnosis Admitting Diagnosis: weakness, dehydration, leukocytosis, UTI DS: Discharge Diagnosis Discharge Diagnosis (1) Weakness: Code(s): R53.1 - Weakness Status: Acute Assessment and Plan: -----Improved and plans to discharge home. understands she will need to help him with most tasks and does not want him in a SNF at this time. No obvious signs or symptoms of infection. CT A/P shownig nothing acute; CXR clear; UCx negative. TSH normal. CT brain showing no acute findings. Weakness could be related to poor oral intake. ST felt patient could swallow safely. (2) Anemia: Code(s): D64.9 - Anemia, unspecified Status: Acute Assessment and Plan: ------Hgb low at 8.8 but better since last discharge. Iron studies more consistent with anemia of disease (cancer). Recent B12 normal. He probably has underlying minor acute blood loss from the gastric mass as well. Continue Protonix (3) Leukocytosis: Code(s): D72.829 - Elevated white blood cell count, unspecified Status: Acute Assessment and Plan: ------WBC improved to 11.4, down from peak at 17.5 No clear evidence of infection with a clear chest x-ray, normal CT A/P and negative UCx. Blood cultures negative. He is off all abx. Could be related to his cancer. Rocephin was started from the ED but this was stopped. (4) Gastric cancer: Code(s): C16.9 - Malignant neoplasm of stomach, unspecified Status: Acute Assessment and Plan: -----Patient with adenocarcinoma of the stomach. PET scan shows increased uptake in the stomach as well as liver concerning for metastatic disease. Personally notified Dr. Thurman about the admission. (5) DM2 (diabetes mellitus, type 2): Code(s): E11.9 - Type 2 diabetes mellitus without complications Status: Chronic Assessment and Plan: ------A1c was 6.1 last admission. Glucose reviewed on 06/28 Glucose into the 200's at times. Patient on Amaryl and metformin at home. (6) History of CVA (cerebrovascular accident): Code(s): Z86.73 - Personal history of transient ischemic attack (TIA), and cerebral infarction without residual deficits Status: Acute Assessment and Plan: -----Brain CT on 05/26/2020 showing old lacunar infarcts in the bilateral thalami and left side of the marlena. There is also evidence of chronic small-vessel ischemic disease. As above. Will repeat CT scan. He is currently not on anti-platelet therapy due to the known bleeding gastric mass. (7) Benign essential HTN: Code(s): I10 - Essential (primary) hypertension Status: Acute Assessment and Plan: ------bp has been up, continue lisinopril. (8) BPH (benign prostatic hyperplasia): Code(s): N40.0 - Benign prostatic hyperplasia without lower urinary tract symptoms Status: Acute Assessment and Plan: Stable. (9) Dementia: Qualifiers: Dementia behavioral disturbance: with behavioral disturbance Dementia type: unspecified type Qualified Code(s): F03.91 - Unspecified dementia with behavioral disturbance Code(s): F03.90 - Unspecified dementia without behavioral disturbance Status: Acute Assessment and Plan: -----Patient alert but confused. Probably at baseline. Continue Aricept and Namenda. (10) Hyperlipidemia: Code(s): E78.5 - Hyperlipidemia, unspecified Status: Chronic Assessment and Plan: LFTs within normal limits. (11) DVT prophylaxis: Code(s): Z29.9 - Encounter for prophylactic measures, unspecified Status: Acute DS: Summary Hospital Course Reason for hospitalization: Weakness Hospital Course: Patient is a 80-year-old male with recent history of gastric cancer who presented emergency room for weakness with low blood pressures suspect dehydration. Patient was given IV fluids
--- NOTE | 2020-06-28 13:58 | PCOTNOTE ---
Patient refused all ADL activities or functional mobility. Will attempt tomorrow to continue plan of care.
[2020-06-28 16:24] LABS: Glucose Point of Care 237 (65-105)
== END 2020-06-28 18:00 | disposition home health service (06) ==
LOC: ANHED 06-26 04:44 → ANH2MED 06-26 04:56
PROVIDERS: General Practice; Internal Medicine; Physician Assistant; Admitting Provider Internal Medicine; Emergency Provider Emergency Medicine; Visit Provider Internal Medicine
DX: E86.0 Dehydration (principal); R47.1 Dysarthria and anarthria; D64.9 Anemia, unspecified; D72.829 Elevated white blood cell count, unspecified; C16.9 Malignant neoplasm of stomach, unspecified; R94.31 Abnormal electrocardiogram [ECG] [EKG]; M54.2 Cervicalgia; M25.519 Pain in unspecified shoulder; I10 Essential (primary) hypertension; E11.9 Type 2 diabetes mellitus without complications; I70.0 Atherosclerosis of aorta; E78.5 Hyperlipidemia, unspecified; N40.0 Benign prostatic hyperplasia without lower urinary tract symptoms; I51.7 Cardiomegaly; F03.90 Unspecified dementia, unspecified severity, without behavioral disturbance, psychotic disturbance, mood disturbance, and anxiety; K57.30 Diverticulosis of large intestine without perforation or abscess without bleeding; Z87.891 Personal history of nicotine dependence; Z86.73 Personal history of transient ischemic attack (TIA), and cerebral infarction without residual deficits
CPT/HCPCS: 36415; 70450; 71045; 74176; 80053; 81001; 83540; 83550; 83605; 83690; 83735; 84443; 85025; 86140; 87040; 87086; 92610; 93005; 96361; 96365; 96367; 96375; 97161; 97166; 99285; A9270; C9113; G0378; J0696; J1815; J2543; J7030; J7120